=== PATIENT | female | born 1945 | race Caucasian/White ===

== ENCOUNTER → 2018-01-10 14:00 | Outpatient (CLI) | payer MEDICARE, MEDICAID, SELFPAY | PROVIDERS: PCP Nurse Practitioner Family; Visit Provider Nurse Practitioner Gerontology | DX: R32 Unspecified urinary incontinence (principal); Z87.440 Personal history of urinary (tract) infections; I10 Essential (primary) hypertension; E11.9 Type 2 diabetes mellitus without complications | CPT/HCPCS: 99213 ==

== ENCOUNTER 2018-02-12 00:19 | Outpatient (CLI) | payer MEDICARE, MEDICAID, SELFPAY ==
--- NOTE | 2018-02-12 10:32 | DI.MAMMO_ITS ---
SYMPTOM/DIAGNOSIS: SCREENING, PERSONAL H/O BREAST CA MAMMOGRAMS: Mammograms were interpreted according to the usual protocol including computer analysis with CAD system, tomosynthesis and C view imaging. The patient has a history of left breast cancer with lumpectomy in the upper outer quadrant. Comparison is made with exams from [id number]. The breasts are composed of scattered fibroglandular densities. No suspicious masses or suspicious microcalcifications or changes are seen. Post lumpectomy scarring is again noted in the upper outer quadrant of the left breast. IMPRESSION: Category 2B, negative mammogram with benign findings. Yearly screening mammography is recommended. SA ASSESSMENT OF FINDINGS: Negative with benign findings. Category 2. Patient will receive a letter notifying them of these results. BI-RADS category B. There are scattered areas of fibroglandular density.
== END 2018-02-12 00:39 ==
PROVIDERS: PCP Nurse Practitioner Family; Visit Provider Nurse Practitioner Gerontology
DX: Z85.3 Personal history of malignant neoplasm of breast (principal); Z12.31 Encounter for screening mammogram for malignant neoplasm of breast; Z98.890 Other specified postprocedural states
CPT/HCPCS: 77063; 77067

== ENCOUNTER 2018-04-06 02:05 | Outpatient (CLI) | payer MEDICARE, MEDICAID, SELFPAY ==
[2018-04-06 08:31] LABS: Hemoglobin A1C 5.6 % (4.5-6.2)
[2018-04-06 09:44] LABS: ALT 21 U/L (12-78); AST 12 U/L (15-37); Albumin 3.5 g/dL (3.4-5.0); Alkaline Phosphatase 153 U/L (46-116); Anion Gap 5.8 mmol/L (3-11); BUN 13 mg/dL (7-18); Bilirubin, Total 0.5 mg/dL (0.2-1.0); CO2 32.2 mmol/L (21.0-32.0); CREATININE 0.71 mg/dL (0.55-1.02); Calcium 9.4 mg/dL (8.5-10.1); Chloride 95 mmol/L (98-107); Cholesterol 174 mg/dL (50-200); Glucose 105 mg/dL (70-100); HDL Cholesterol 49 mg/dL (40-60); LDL CHOLESTEROL 114 mg/dL (<100); Potassium 4.1 mmol/L (3.5-5.1); Sodium 133 mmol/L (136-145); TSH 1.45 uIU/mL (0.358-3.74); Total Protein 6.8 g/dL (6.4-8.2); Triglyceride 66 mg/dL (30-150)
[2018-04-06 10:04] LABS: FREE T4 0.92 ng/dL (0.76-1.46)
== END 2018-04-06 02:25 ==
PROVIDERS: PCP Nurse Practitioner Family; Visit Provider Nurse Practitioner Family
DX: I10 Essential (primary) hypertension (principal); E78.5 Hyperlipidemia, unspecified; E11.9 Type 2 diabetes mellitus without complications
CPT/HCPCS: 36415; 80053; 80061; 83721; 83036; 84439; 84443

== ENCOUNTER 2018-05-13 00:13 | Outpatient (CLI) | payer MEDICARE, MEDICAID, SELFPAY ==
[2018-05-13 11:15] LABS: ALT 16 U/L (12-78); AST 9 U/L (15-37); Albumin 3.7 g/dL (3.4-5.0); Alkaline Phosphatase 152 U/L (46-116); Anion Gap 8.1 mmol/L (3-11); BUN 14 mg/dL (7-18); Bilirubin, Total 0.4 mg/dL (0.2-1.0); CO2 32.9 mmol/L (21.0-32.0); CREATININE 0.68 mg/dL (0.55-1.02); Calcium 9.4 mg/dL (8.5-10.1); Chloride 99 mmol/L (98-107); Glucose 82 mg/dL (70-100); Potassium 3.7 mmol/L (3.5-5.1); Sodium 140 mmol/L (136-145); Total Protein 7.2 g/dL (6.4-8.2)
== END 2018-05-13 00:33 ==
PROVIDERS: PCP Nurse Practitioner Family; Visit Provider Nurse Practitioner Family
DX: E11.9 Type 2 diabetes mellitus without complications (principal)
CPT/HCPCS: 36415; 80053

== ENCOUNTER 2018-05-21 21:42 | Emergency (ER) | payer MEDICARE, MEDICAID, SELFPAY ==
[2018-05-21 21:48] VITALS: BP 195/79; PULSE 90; RESP 16; TEMP 36.8; O2SAT 96
--- NOTE | 2018-05-21 21:58 | W.ED.GENAD ---
Discharge Plan Disposition Patient Disposition: AGAINST MEDICAL ADVICE Condition: Stable Discharge Details Chief Complaint: Headache Clinical Impression: Headache, Nausea and vomiting Primary Care Provider: Debbie Angulo ED Provider: Velma Hernandez Home Meds and New Rx's Prescriptions: Continued lancets [OneTouch UltraSoft Lancets] 1 EACH misc 1 ea Miscellaneous DAILY Qty: 100 RF: 4 cholecalciferol (vitamin D3) 1,000 UNIT capsule 1,000 unit PO DAILY RF: 0 Ascorbic Acid 100 mg PO DAILY RF: 0 OneTouch Ultra Test 1 EACH strip 1 ea Miscellaneous DAILY Qty: 100 RF: 4 lisinopril 10 MG tablet 10 mg PO DAILY Qty: 90 RF: 3 Discharge Instructions Instructions: Migraine Headache (ED), Acute Nausea and Vomiting (ED), General Headache (ED) Additional Instructions: Drink plenty of fluids and get plenty of rest. Call your primary care doctor tomorrow to schedule follow-up appointment for reevaluation. You will receive a call from care management regarding a follow-up appoint with neurology. Return immediately to the emergency department any worsening or new concerning symptoms. Referrals: Amalia Plummer MD [ [facility] STAFF PHYSICIAN] - Discharge Data Discharge Physician: Velma Hernandez Medical Decision Making 72-year-old female with a history of diabetes, hypertension, high cholesterol, breast cancer, depression and migraines who presents for frontal and occipital headache worse than usual migraine as well as a 3-hour period of confusion c/w possible receptive/expressive aphasia which is now resolved. Blood pressure hypertensive. Remainder vitals within normal limits. No focal deficits on exam. Patient appears nontoxic and in no acute distress. Differential diagnoses include acute cva, tia, complex migraine, electrolyte abnormality. Will place an IV, bolus IV fluids, Compazine, Reglan, labs, EKG, chest x-ray as well as CT head and will plan for admission TIA rule out CVA I notified the hospitalist and likely plan for admission pending CT head. EKG noted a rate of 86, sinus, left bundle branch block, seen in previous, no acute change. 2320 --CT head and chest x-ray negative. Labs reviewed. White blood cell count 12. Troponin negative. Glucose 166. Remainder of labs essentially unremarkable. Patient informed of plan for admission and she is requesting to go home. Patient states she is feeling much better and feels that her symptoms were possibly due to migraine. The risks of and disability due to a serious pathology such as TIA or CVA, were explained and patient fully understands and still is requesting to leave. She demonstrates capacity to make decisions. AMA form signed. Will place patient on care management list to arrange for a follow-up appointment with neurology for reevaluation for concern for possible TIA versus complex migraine. Medical Records Medical records reviewed: Yes I reviewed the patient's medical records. Imaging Data Radiologic Study: Radiologist's impression: CT Head Without Contrast EXAM DATE/TIME: 05/21/2018 10:34 PM FINDINGS: Brain: Minimal chronic ischemic white matter disease. No acute territorial infarct. Ventricles: Normal. No ventriculomegaly. Bones/joints: Normal. No acute fracture. Sinuses: Normal as visualized. No acute sinusitis. Mastoid air cells: Normal as visualized. No mastoid effusion. Soft tissues: Normal. IMPRESSION: No acute intracranial findings. XR Chest, 2 Views EXAM DATE/TIME: 05/21/2018 10:31 PM FINDINGS: Lungs: Unremarkable. No consolidation. Pleural space: Unremarkable. No pleural effusion. No pneumothorax. Heart/Mediastinum: Unremarkable. No cardiomegaly. Bones/joints: Degenerative change of the shoulders and spine. IMPRESSION: No acute finding. Lab Data Lab results reviewed: Yes I reviewed the patient's lab results. Laboratory Tests Range/Units 05/21/18 05/21/18 23:00 23:00 WBC (4.4-10.8) k/cumm 12.33 H RBC (4.00-5.20) m/cumm 4.91 Hgb (12.0-15.5) g/dL 13.9 Hct (36.0-46.0) % 40.5 MCV (80-95) fL 82.5 MCH (27.0-33.0) pg 28.3 MCHC (32.0-36.0) g/dL 34.3 RDW (11.7-14.6) % 13.5 Plt Count (130-400) x1000/uL 253 MPV (8.0-11.0) fL 10.4 Immature Gran % 0.3 Neutrophils % 84.2 Lymphocytes % 10.3 Monocytes % 4.9 Eosinophils % 0.2 Basophils % 0.1 Absolute Neutrophils (1.2-6.7) k/cumm 10.38 H Absolute Lymphocytes (1.2-3.4) k/cumm 1.27 Absolute Monocytes (0.11-0.7) k/cumm 0.60 Absolute Eosinophils (0.0-0.7) k/cumm 0.02 Absolute Basophils (0.0-0.2) k/cumm 0.01 Sodium (136-145) mmol/L 134 L Potassium (3.5-5.1) mmol/L 3.6 Chloride (98-107) mmol/L 94 L Carbon Dioxide (21.0-32.0) mmol/L 29.1 Anion Gap (3-11) mmol/L 10.9 BUN (7-18) mg/dL 13 Creatinine (0.55-1.02) mg/dL 0.79 Estimated GFR/1.73 m2 (mL/min/1.73m2) >= 60.00 Glucose (70-100) mg/dL 166 H Calcium (8.5-10.1) mg/dL 9.6 Magnesium (1.8-2.4) mg/dL 1.9 Total Bilirubin (0.2-1.0) mg/dL 0.4 AST (15-37) U/L 18 ALT (12-78) U/L 23 Alkaline Phosphatase (46-116) U/L 163 H Troponin I (0.00-0.06) ng/mL < 0.02 Total Protein (6.4-8.2) g/dL 8.1 Albumin (3.4-5.0) g/dL 3.8 ECG Data Attestation: I personally reviewed and interpreted this ECG (s) as follows: Interpretation: EKG notes a rate of 86, sinus, left bundle branch block, seen in previous, no other acute change. HPI General Mode of arrival: ambulatory. Date/Time Provider Initiated Documentation: 05/21/18 21:55. Limitations to Documentation: no limitations. Information obtained by: patient. HPI Narrative: Patient is a 72-year-old female with a history of migraines, breast cancer, depression, diabetes, hypertension, hyperlipidemia who presents to the ED with a complaint of headache since this morning and confusion this evening. Patient states she has a history of migraines since her 20s and a family history of migraines but states she has not had many for several years until the last year. States she has had 3 migraines in the last year which feels similar to today's migraine except today's migraine was more intense and lasting longer. Patient states her migraines are usually frontal which also occurred today but was also in the occipital region as well. Patient states that headache was 8/10 earlier today and is currently 7/10. She took Tylenol and Excedrin tension headache with some relief. Patient also admits to. Muna when she was looking at her cell phone when she could not understand the reading and felt like she could not understand how to push the keys. She states she could not make sense of the words . She states this lasted for a few hours and seems to be resolved. Patient also admits to nausea and vomiting x1 as well as photophobia. She denies any dizziness or blurry vision or extremity weakness or numbness. Related Data Home Medications Medication Instructions Recorded Confirmed lancets [[employer]Touch UltraSoft #100 ea 05/03/14 05/18/18 Lancets] cholecalciferol (vitamin D3) 1,000 unit PO DAILY 05/23/14 05/21/18 Ascorbic Acid 100 mg PO DAILY 06/11/15 05/21/18 [employer] Ultra Test #100 strip 06/11/15 05/18/18 lisinopril 10 mg PO DAILY #90 tab-cap 12/29/17 05/21/18 Previous Rx's Medication Instructions Recorded lisinopril 10 mg PO DAILY #90 tab-cap 12/29/17 Allergies Allergy/AdvReac Type Severity Reaction Status Date / Time morphine AdvReac Mild nausea Unverified 05/21/18 21:54 sulfamethoxazole AdvReac Mild nausea Unverified 05/21/18 21:54 [From Bactrim] trimethoprim [From Bactrim] AdvReac Mild nausea Unverified 05/21/18 21:54 losartan AdvReac Unknown Pt reports Unverified 05/21/18 21:54 redness and pain to feet -BR clindamycin AdvReac nausea/acid Unverified 05/21/18 21:54 stomach oxycodone HCl [From Percocet] AdvReac nausea Unverified 05/21/18 21:54 red wine AdvReac VERY Uncoded 05/21/18 21:54 UNCOMFORTABLE, LIKE BP IS UP General Stated Complaint: Headache JENNIFER: 3 Review of Systems Review of Systems All systems reviewed & are unremarkable except as noted in HPI and below Constitutional Reports as per HPI, Denies chills, Denies fever(s), Reports headache(s) and Denies weakness Eyes Denies blurry vision and Denies loss of vision ENT Denies dizziness, Reports headache(s), Denies sore throat and Denies throat swelling Cardiovascular Denies chest pain and Denies dyspnea Respiratory Denies dyspnea Gastrointestinal Denies abdominal pain, Denies diarrhea and Denies vomiting Genitourinary Denies hematuria and Denies dysuria Musculoskeletal Denies back pain, Denies numbness and Denies tingling Integumentary/Breasts Denies lesions and Denies rash Neurologic Reports confusion, Denies dizziness, Reports headache(s), Denies focal weakness, Denies loss of vision, Denies memory loss, Denies numbness, Denies convulsions, Denies tingling, Denies paresthesias and Denies weakness Psychiatric Reports confusion and Denies memory loss Allergic/Immunologic Denies throat swelling [facility] Medical History Type 2 diabetes mellitus (Chronic) 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) Hypertension (Chronic) Hyperlipemia (Chronic) Chronic cough (Chronic) Breast cancer history of L Depression Diabetes mellitus, type 2 Hyperlipidemia Hypertension Surgical History Abdominal hysterectomy Breast, Lumpectomy Colonoscopy - MAC L hip bursitis surgery Oophrectomy, Both Replacement of total knee joint Total replacement of hip Ulna nerve surgery L arm Family History Mother Essential hypertension Personal history of malignant neoplasm Depression Hyperlipidemia Father Essential hypertension Heart disease Sister Diabetes Essential hypertension Depression Heart disease Hyperlipidemia Sister Essential hypertension Brother Essential hypertension Heart disease Brother Diabetes Essential hypertension Depression Myocardial infarction Brother No problems noted. Grandfather Heart disease Grandfather Heart disease Grandmother Heart disease Grandmother Heart disease Son No problems noted. Son Essential hypertension Depression Son Depression Daughter No problems noted. Social History household members: none current occupational status: retired frequency: does not exercise Smoking/Tobacco Use Status: Never alcohol intake: never substance use type: does not use arina/anabaptist: Restorationism special arina needs: No Exam Const General: cooperative, healthy appearing and no acute distress HENMT Head: normal to inspection Ears: hearing grossly normal bilaterally and TM's normal bilaterally General nose exam: external nose normal Face and sinus: normal facial exam Mouth: oral mucosae normal Eyes General: appearance normal, both eyes and all related structures Pupils: PERRL EOM: EOM intact bilaterally Neck Neck: normal visual inspection and No submandibular swelling Lymphatic: no lymphadenopathy noted Chest Chest: normal inspection of the chest and no tenderness Resp Effort & Inspection: normal respiratory effort and able to speak in complete sentences Auscultation: clear to auscultation bilaterally Cardio Rate: regular rate Rhythm: regular rhythm GI Inspection: normal to inspection Palpation: soft, not firm, not rigid and nontender Auscultation: normal bowel sounds Skin General skin exam: no rashes or lesions noted Neuro General: alert, awake and oriented x3 Cranial Nerves: CN's II-XI intact bilaterally Cognition: normal cognition Speech: speech normal Motor: muscle tone normal throughout and strength 5/5 throughout Sensory Exam: no sensory deficits noted Extrem General: normal to inspection, full ROM, normal capillary refill, no calf tenderness bilaterally and no edema Psych Appearance: grossly normal Mental Status: mental status grossly normal Speech and Movement: speech and movement normal Affect: normal affect Course Vital Signs Temperature 98.3 F 05/21/18 21:48 Pulse 90 05/21/18 21:48 Respiratory Rate 16 05/21/18 21:48 Pulse Oximetry 96 05/21/18 21:48 Temperature 98.3 F 05/21/18 21:48 Temperature Source Skin 05/21/18 21:48 Pulse 90 05/21/18 21:48 Respiratory Rate 16 05/21/18 21:48 Respiratory Effort Non-Labored 05/21/18 21:52 Pulse Oximetry 96 05/21/18 21:48 Pain Level 7 05/21/18 21:48
--- NOTE | 2018-05-21 22:29 | DI.RAD_ITS ---
SYMPTOM/DIAGNOSIS: CONFUSION, R/O ACUTE CVA PA AND LATERAL CHEST: The heart is normal in size. The lungs are clear. The mediastinal structures and pleura appear intact. CONCLUSION: Normal chest. No evidence of acute cardiopulmonary disease.
--- NOTE | 2018-05-21 22:31 | DI.CT_ITS ---
SYMPTOM/DIAGNOSIS: CONFUSION, R/O ACUTE CVA CRANIAL CT: The examination was carried out according to the usual protocol without contrast enhancement. There is no evidence of an intra or extra axial hemorrhage, mass or edema and nothing to suggest a territorial infarct. The ventricles are normal. The bony structures are unremarkable. There is no skull fracture. There is no evidence of sinusitis. There is no mastoid effusion. The soft tissues are unremarkable. SUMMARY: No acute intracranial abnormality is demonstrated.
--- NOTE | 2018-05-21 22:37 | ED.GENADUL_ITS ---
Discharge Plan Disposition Patient Disposition: AGAINST MEDICAL ADVICE Condition: Stable Discharge Details Chief Complaint: Headache Clinical Impression: Headache, Nausea and vomiting Primary Care Provider: Debbie Angulo ED Provider: Velma Hernandez Home Meds and New Rx's Prescriptions: Continued lancets [OneTouch UltraSoft Lancets] 1 EACH misc 1 ea Miscellaneous DAILY Qty: 100 RF: 4 cholecalciferol (vitamin D3) 1,000 UNIT capsule 1,000 unit PO DAILY RF: 0 Ascorbic Acid 100 mg PO DAILY RF: 0 OneTouch Ultra Test 1 EACH strip 1 ea Miscellaneous DAILY Qty: 100 RF: 4 lisinopril 10 MG tablet 10 mg PO DAILY Qty: 90 RF: 3 Discharge Instructions Instructions: Migraine Headache (ED), Acute Nausea and Vomiting (ED), General Headache (ED) Additional Instructions: Drink plenty of fluids and get plenty of rest. Call your primary care doctor tomorrow to schedule follow-up appointment for reevaluation. You will receive a call from care management regarding a follow-up appoint with neurology. Return immediately to the emergency department any worsening or new concerning symptoms. Referrals: Amalia Plummer MD [ [facility]FF [facility]YS[facility]IAN] - Discharge Data Discharge Physician: Velma Hernandez Medical Decision Making 72-year-old female with a history of diabetes, hypertension, high cholesterol, breast cancer, depression and migraines who presents for frontal and occipital headache worse than usual migraine as well as a 3-hour period of confusion c/w possible receptive/expressive aphasia which is now resolved. Blood pressure hypertensive. Remainder vitals within normal limits. No focal deficits on exam. Patient appears nontoxic and in no acute distress. Differential diagnoses include acute cva, tia, complex migraine, electrolyte abnormality. Will place an IV, bolus IV fluids, Compazine, Reglan, labs, EKG, chest x-ray as well as CT head and will plan for admission TIA rule out CVA I notified the hospitalist and likely plan for admission pending CT head. EKG noted a rate of 86, sinus, left bundle branch block, seen in previous, no acute change. 2320 --CT head and chest x-ray negative. Labs reviewed. White blood cell count 12. Troponin negative. Glucose 166. Remainder of labs essentially unremarkable. Patient informed of plan for admission and she is requesting to go home. Patient states she is feeling much better and feels that her symptoms were possibly due to migraine. The risks of and disability due to a serious pathology such as TIA or CVA, were explained and patient fully understands and still is requesting to leave. She demonstrates capacity to make decisions. AMA form signed. Will place patient on care management list to arrange for a follow-up appointment with neurology for reevaluation for concern for possible TIA versus complex migraine. Medical Records Medical records reviewed: Yes I reviewed the patient's medical records. Imaging Data Radiologic Study: Radiologist's impression: CT Head Without Contrast EXAM DATE/TIME: 05/21/2018 10:34 PM FINDINGS: Brain: Minimal chronic ischemic white matter disease. No acute territorial infarct. Ventricles: Normal. No ventriculomegaly. Bones/joints: Normal. No acute fracture. Sinuses: Normal as visualized. No acute sinusitis. Mastoid air cells: Normal as visualized. No mastoid effusion. Soft tissues: Normal. IMPRESSION: No acute intracranial findings. XR Chest, 2 Views EXAM DATE/TIME: 05/21/2018 10:31 PM FINDINGS: Lungs: Unremarkable. No consolidation. Pleural space: Unremarkable. No pleural effusion. No pneumothorax. Heart/Mediastinum: Unremarkable. No cardiomegaly. Bones/joints: Degenerative change of the shoulders and spine. IMPRESSION: No acute finding. Lab Data Lab results reviewed: Yes I reviewed the patient's lab results. Laboratory Tests Range/Units 05/21/18 05/21/18 23:00 23:00 WBC (4.4-10.8) k/cumm 12.33 H RBC (4.00-5.20) m/cumm 4.91 Hgb (12.0-15.5) g/dL 13.9 Hct (36.0-46.0) % 40.5 MCV (80-95) fL 82.5 MCH (27.0-33.0) pg 28.3 MCHC (32.0-36.0) g/dL 34.3 RDW (11.7-14.6) % 13.5 Plt Count (130-400) x1000/uL 253 MPV (8.0-11.0) fL 10.4 Immature Gran % 0.3 Neutrophils % 84.2 Lymphocytes % 10.3 Monocytes % 4.9 Eosinophils % 0.2 Basophils % 0.1 Absolute Neutrophils (1.2-6.7) k/cumm 10.38 H Absolute Lymphocytes (1.2-3.4) k/cumm 1.27 Absolute Monocytes (0.11-0.7) k/cumm 0.60 Absolute Eosinophils (0.0-0.7) k/cumm 0.02 Absolute Basophils (0.0-0.2) k/cumm 0.01 Sodium (136-145) mmol/L 134 L Potassium (3.5-5.1) mmol/L 3.6 Chloride (98-107) mmol/L 94 L Carbon Dioxide (21.0-32.0) mmol/L 29.1 Anion Gap (3-11) mmol/L 10.9 BUN (7-18) mg/dL 13 Creatinine (0.55-1.02) mg/dL 0.79 Estimated GFR/1.73 m2 (mL/min/1.73m2) >= 60.00 Glucose (70-100) mg/dL 166 H Calcium (8.5-10.1) mg/dL 9.6 Magnesium (1.8-2.4) mg/dL 1.9 Total Bilirubin (0.2-1.0) mg/dL 0.4 AST (15-37) U/L 18 ALT (12-78) U/L 23 Alkaline Phosphatase (46-116) U/L 163 H Troponin I (0.00-0.06) ng/mL < 0.02 Total Protein (6.4-8.2) g/dL 8.1 Albumin (3.4-5.0) g/dL 3.8 ECG Data Attestation: I personally reviewed and interpreted this ECG (s) as follows: Interpretation: EKG notes a rate of 86, sinus, left bundle branch block, seen in previous, no other acute change. HPI General Mode of arrival: ambulatory . Date/Time Provider Initiated Documentation: 05/21/18 21:55 . Limitations to Documentation: no limitations . Information obtained by: patient . HPI Narrative: Patient is a 72-year-old female with a history of migraines, breast cancer, depression, diabetes, hypertension, hyperlipidemia who presents to the ED with a complaint of headache since this morning and confusion this evening. Patient states she has a history of migraines since her 20s and a family history of migraines but states she has not had many for several years until the last year. States she has had 3 migraines in the last year which feels similar to today's migraine except today's migraine was more intense and lasting longer. Patient states her migraines are usually frontal which also occurred today but was also in the occipital region as well. Patient states that headache was 8/10 earlier today and is currently 7/10. She took Tylenol and Excedrin tension headache with some relief. Patient also admits to. Muna when she was looking at her cell phone when she could not understand the reading and felt like she could not understand how to push the keys. She states she could not make sense of the words . She states this lasted for a few hours and seems to be resolved. Patient also admits to nausea and vomiting x1 as well as photophobia. She denies any dizziness or blurry vision or extremity weakness or numbness. Related Data Home Medications Medication Instructions Recorded Confirmed lancets [[email or web address] UltraSoft #100 ea 05/03/14 05/18/18 Lancets] cholecalciferol (vitamin D3) 1,000 unit PO DAILY 05/23/14 05/21/18 Ascorbic Acid 100 mg PO DAILY 06/11/15 05/21/18 [email or web address] Ultra Test #100 strip 06/11/15 05/18/18 lisinopril 10 mg PO DAILY #90 tab-cap 12/29/17 05/21/18 Previous Rx's Medication Instructions Recorded lisinopril 10 mg PO DAILY #90 tab-cap 12/29/17 Allergies Allergy/AdvReac Type Severity Reaction Status Date / Time morphine AdvReac Mild nausea Unverified 05/21/18 21:54 sulfamethoxazole AdvReac Mild nausea Unverified 05/21/18 21:54 [From Bactrim] trimethoprim [From Bactrim] AdvReac Mild nausea Unverified 05/21/18 21:54 losartan AdvReac Unknown Pt reports Unverified 05/21/18 21:54 redness and pain to feet -BR clindamycin AdvReac nausea/acid Unverified 05/21/18 21:54 stomach oxycodone HCl [From Percocet] AdvReac nausea Unverified 05/21/18 21:54 red wine AdvReac VERY Uncoded 05/21/18 21:54 UNCOMFORTABLE, LIKE BP IS UP General Stated Complaint: Headache JENNIFER: 3 Review of Systems Review of Systems All systems reviewed & are unremarkable except as noted in HPI and below Constitutional Reports as per HPI, Denies chills, Denies fever(s), Reports headache(s) and Denies weakness Eyes Denies blurry vision and Denies loss of vision ENT Denies dizziness, Reports headache(s), Denies sore throat and Denies throat swelling Cardiovascular Denies chest pain and Denies dyspnea Respiratory Denies dyspnea Gastrointestinal Denies abdominal pain, Denies diarrhea and Denies vomiting Genitourinary Denies hematuria and Denies dysuria Musculoskeletal Denies back pain, Denies numbness and Denies tingling Integumentary/Breasts Denies lesions and Denies rash Neurologic Reports confusion, Denies dizziness, Reports headache(s), Denies focal weakness, Denies loss of vision, Denies memory loss, Denies numbness, Denies convulsions, Denies tingling, Denies paresthesias and Denies weakness Psychiatric Reports confusion and Denies memory loss Allergic/Immunologic Denies throat swelling [facility] Medical History Type 2 diabetes mellitus (Chronic) 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) Hypertension (Chronic) Hyperlipemia (Chronic) Chronic cough (Chronic) Breast cancer history of L Depression Diabetes mellitus, type 2 Hyperlipidemia Hypertension Surgical History Abdominal hysterectomy Breast, Lumpectomy Colonoscopy - MAC L hip bursitis surgery Oophrectomy, Both Replacement of total knee joint Total replacement of hip Ulna nerve surgery L arm Family History Mother Essential hypertension Personal history of malignant neoplasm Depression Hyperlipidemia Father Essential hypertension Heart disease Sister Diabetes Essential hypertension Depression Heart disease Hyperlipidemia Sister Essential hypertension Brother Essential hypertension Heart disease Brother Diabetes Essential hypertension Depression Myocardial infarction Brother No problems noted. Grandfather Heart disease Grandfather Heart disease Grandmother Heart disease Grandmother Heart disease Son No problems noted. Son Essential hypertension Depression Son Depression Daughter No problems noted. Social History household members: none current occupational status: retired frequency: does not exercise Smoking/Tobacco Use Status: Never alcohol intake: never substance use type: does not use arina/moravian: Jain special arina needs: No Exam Const General: cooperative, healthy appearing and no acute distress HENMT Head: normal to inspection Ears: hearing grossly normal bilaterally and TM's normal bilaterally General nose exam: external nose normal Face and sinus: normal facial exam Mouth: oral mucosae normal Eyes General: appearance normal, both eyes and all related structures Pupils: PERRL EOM: EOM intact bilaterally Neck Neck: normal visual inspection and No submandibular swelling Lymphatic: no lymphadenopathy noted Chest Chest: normal inspection of the chest and no tenderness Resp Effort & Inspection: normal respiratory effort and able to speak in complete sentences Auscultation: clear to auscultation bilaterally Cardio Rate: regular rate Rhythm: regular rhythm GI Inspection: normal to inspection Palpation: soft, not firm, not rigid and nontender Auscultation: normal bowel sounds Skin General skin exam: no rashes or lesions noted Neuro General: alert, awake and oriented x3 Cranial Nerves: CN's II-XI intact bilaterally Cognition: normal cognition Speech: speech normal Motor: muscle tone normal throughout and strength 5/5 throughout Sensory Exam: no sensory deficits noted Extrem General: normal to inspection, full ROM, normal capillary refill, no calf tenderness bilaterally and no edema Psych Appearance: grossly normal Mental Status: mental status grossly normal Speech and Movement: speech and movement normal Affect: normal affect Course Vital Signs Temperature 98.3 F 05/21/18 21:48 Pulse 90 05/21/18 21:48 Respiratory Rate 16 05/21/18 21:48 Pulse Oximetry 96 05/21/18 21:48 Temperature 98.3 F 05/21/18 21:48 Temperature Source Skin 05/21/18 21:48 Pulse 90 05/21/18 21:48 Respiratory Rate 16 05/21/18 21:48 Respiratory Effort Non-Labored 05/21/18 21:52 Pulse Oximetry 96 05/21/18 21:48 Pain Level 7 05/21/18 21:48
[2018-05-21] MEDS: Normal Saline 250 ML 500 ML IV (23:03)
[2018-05-21] MEDS: diphenhydrAMINE 50 MG/ML VIAL 25 MG IVP (23:05)
[2018-05-21] MEDS: Prochlorperazine 10 MG/2 ML VIAL IVP (23:08)
--- NOTE | 2018-05-21 23:09 | DI.VRAD_ITS ---
EXAM: CT Head Without Contrast EXAM DATE/TIME: 05/21/2018 10:34 PM CLINICAL HISTORY: 72 years old, female; Signs and symptoms; Other: Confusion; Additional info: R/O acute CVA TECHNIQUE: Axial computed tomography images of the head/brain without contrast. Coronal and sagittal reformatted images were created and reviewed. COMPARISON: No relevant prior studies available. FINDINGS: Brain: Minimal chronic ischemic white matter disease. No acute territorial infarct. Ventricles: Normal. No ventriculomegaly. Bones/joints: Normal. No acute fracture. Sinuses: Normal as visualized. No acute sinusitis. Mastoid air cells: Normal as visualized. No mastoid effusion. Soft tissues: Normal. IMPRESSION: No acute intracranial findings. Dictated and Authenticated by: Emory Cazares MD. Ordering:GISSEL Carreon MD
--- NOTE | 2018-05-21 23:09 | DI.VRAD_ITS ---
EXAM: XR Chest, 2 Views EXAM DATE/TIME: 05/21/2018 10:31 PM CLINICAL HISTORY: 72 years old, female; Condition or disease; Other: Confusion; Additional info: R/O acute CVA TECHNIQUE: XR of the chest, 2 views. COMPARISON: No relevant prior studies available. FINDINGS: Lungs: Unremarkable. No consolidation. Pleural space: Unremarkable. No pleural effusion. No pneumothorax. Heart/Mediastinum: Unremarkable. No cardiomegaly. Bones/joints: Degenerative change of the shoulders and spine. IMPRESSION: No acute finding. Dictated and Authenticated by: Emory Cazares MD. Ordering:GISSEL Carreon MD
[2018-05-21 23:18] LABS: Abs Immature Grans 0.04 k/cumm (0.0-0.09); Absolute Basophil Count 0.01 k/cumm (0.0-0.2); Absolute Eosinophil Count 0.02 k/cumm (0.0-0.7); Absolute Lymphocyte Count 1.27 k/cumm (1.2-3.4); Absolute Neutrophil Count 10.38 k/cumm (1.2-6.7); Basophils % 0.1; Eosinophils % 0.2; HCT 40.5 % (36.0-46.0); HGB 13.9 g/dL (12.0-15.5); Immature Grans % 0.3; Lymphocytes % 10.3; Mean Corp. HGB Concentration 34.3 g/dL (32.0-36.0); Mean Corpuscular Hemoglobin 28.3 pg (27.0-33.0); Mean Corpuscular Volume 82.5 fL (80-95); Mean Platelet Volume 10.4 fL (8.0-11.0); Monocytes % 4.9; Neutrophils % 84.2; Platelet Count 253 x1000/uL (130-400); RBC 4.91 m/cumm (4.00-5.20); RBC Distribution Width 13.5 % (11.7-14.6); White Blood Cell Count 12.33 k/cumm (4.4-10.8)
[2018-05-21 23:34] LABS: ALT 23 U/L (12-78); AST 18 U/L (15-37); Albumin 3.8 g/dL (3.4-5.0); Alkaline Phosphatase 163 U/L (46-116); Anion Gap 10.9 mmol/L (3-11); BUN 13 mg/dL (7-18); Bilirubin, Total 0.4 mg/dL (0.2-1.0); CO2 29.1 mmol/L (21.0-32.0); CREATININE 0.79 mg/dL (0.55-1.02); Calcium 9.6 mg/dL (8.5-10.1); Chloride 94 mmol/L (98-107); Glucose 166 mg/dL (70-100); Magnesium 1.9 mg/dL (1.8-2.4); Potassium 3.6 mmol/L (3.5-5.1); Sodium 134 mmol/L (136-145); Total Protein 8.1 g/dL (6.4-8.2)
[2018-05-21 23:40] LABS: Troponin I < 0.02 ng/mL (0.00-0.06)
== END 2018-05-21 23:50 | disposition left against medical advice (07) ==
PROVIDERS: Emergency Provider Physician Assistant; PCP Nurse Practitioner Family
DX: R51 Headache (principal); R11.2 Nausea with vomiting, unspecified; I44.7 Left bundle-branch block, unspecified; I10 Essential (primary) hypertension; E11.9 Type 2 diabetes mellitus without complications
CPT/HCPCS: 36415; 80053; 93005; 96374; 96375; 99285; 70450; 71046; 83735; 84484; 85025; 93010; J0780; J1200

== ENCOUNTER 2018-10-08 02:03 | Outpatient (CLI) | payer MEDICARE, MEDICAID, SELFPAY ==
[2018-10-08 11:27] LABS: Anion Gap 6.7 mmol/L (3-11); BUN 12 mg/dL (7-18); CO2 31.3 mmol/L (21.0-32.0); Calcium 9.3 mg/dL (8.5-10.1); Chloride 99 mmol/L (98-107); Cholesterol 196 mg/dL (50-200); Glucose 99 mg/dL (70-100); HDL Cholesterol 48 mg/dL (40-60); LDL CHOLESTEROL 130 mg/dL (<100); Potassium 4.3 mmol/L (3.5-5.1); Sodium 137 mmol/L (136-145); Triglyceride 94 mg/dL (30-150)
== END 2018-10-08 02:23 ==
PROVIDERS: PCP Nurse Practitioner Family; Visit Provider Nurse Practitioner Family
DX: E11.9 Type 2 diabetes mellitus without complications (principal); E78.5 Hyperlipidemia, unspecified; I10 Essential (primary) hypertension
CPT/HCPCS: 36415; 80048; 80061; 83721; 83036

== ENCOUNTER 2018-10-24 02:45 | Outpatient (CLI) | payer MEDICARE, MEDICAID, SELFPAY ==
--- NOTE | 2018-10-24 | PFT_ITS ---
PULMONARY FUNCTION TEST REPORT Patient - Ni Rodriguez 43 DATE OF SERVICE October 24, 2018 REQUESTING PROVIDER Debbie Angulo M.D. INTERPRETATION OF STUDY Spirometry shows no evidence of obstructive airways disease. No bronchodilator response. LUNG VOLUMES - Lung volumes show no evidence of restriction. DIFFUSION CAPACITY- Normal. AIRWAY RESISTANCE - Normal. IMPRESSION Normal pulmonary function study. Clinical correlation recommended. Anay Kc M.D. PAPA/ T- 11/01/18
[2018-10-24] MEDS: Inhaler, Assist Device 1 EACH MC (16:00)
[2018-10-24] MEDS: Albuterol HFA 18 GM 200 PUFF INH IH (16:01)
== END 2018-10-24 03:05 ==
PROVIDERS: PCP Nurse Practitioner Family; Visit Provider Nurse Practitioner Family
DX: R05 Cough (principal)
CPT/HCPCS: 94060; 94150; 94726; 94729

== ENCOUNTER 2018-10-31 11:55 | Outpatient (CLI) | payer MEDICARE, MEDICAID, SELFPAY ==
--- NOTE | 2018-10-31 11:20 | DI.RAD_ITS ---
SYMPTOMS/DIAGNOSIS: F/U LEFT HIP AND PELVIS: Severe DJD involving the left hip is noted with joint space narrowing, articular sclerosis and subchondral cyst formation and periarticular hypertrophic spurring.
== END 2018-10-31 12:15 ==
PROVIDERS: PCP Nurse Practitioner Family; Referring Provider Nurse Practitioner Family; Visit Provider Orthopaedic Surgery
DX: Z47.1 Aftercare following joint replacement surgery (principal); M16.12 Unilateral primary osteoarthritis, left hip; Z96.653 Presence of artificial knee joint, bilateral; Z96.641 Presence of right artificial hip joint
CPT/HCPCS: 99213; 73502

== ENCOUNTER 2018-11-12 11:18 | Day surgery (SDC) | payer MEDICARE, MEDICAID, SELFPAY ==
[2018-11-12 11:40] VITALS: BP 164/75; PULSE 78; RESP 18; TEMP 36.1; O2SAT 97
[2018-11-12] MEDS: Lidocaine 2% Multi-Dose 50 ML VIAL (13:09)
--- NOTE | 2018-11-12 13:44 | PDOC.DSDIS_ITS ---
Discharge Plan Disposition Patient Disposition: HOME Condition: Good Discharge Details Reason For Visit: Excision of ganglion cyst R ring finger Attending Provider: Jack Cedillo Primary Care Provider: Debbie Angulo Home Meds and New Rx's Prescriptions: Continued vitamin B complex [B Complex 1] tablet 1 tab PO DAILY RF: 0 Prevnar 13 (PF) 0.5 mL syringe 0.5 ml IM ONCE Qty: 0.5 RF: 0 varicella-zoster [id number] (PF) 50 mcg/0.5 mL suspension for reconstitution 0.5 ml IM ONCE Qty: 1 RF: 0 lancets [OneTouch UltraSoft Lancets] 1 EACH misc 1 ea Miscellaneous DAILY Qty: 100 RF: 4 cholecalciferol (vitamin D3) 1,000 UNIT capsule 1,000 unit PO DAILY RF: 0 Ascorbic Acid 100 mg PO DAILY RF: 0 OneTouch Ultra Test 1 EACH strip 1 ea Miscellaneous DAILY Qty: 100 RF: 4 amlodipine 2.5 mg tablet 5 mg PO DAILY Qty: 180 RF: 4 Discharge Instructions Additional Instructions: Keep dressings dry and intact until return. Cover to shower. Follow up in 's office in one week. May use R hand as much as your discomfort allows. Take tylenol or ibuprofen for pain. Referrals: Jack Cedillo MD [ [facility] PHYSICIAN] - (f/u in one week.) Activity:: Activity as Tolerated Remove Dressings/Wound Care:: Do Not Remove Shower/Bathe:: Cover Diet:: As Tolerated Discharge Orders Discharge Orders: Discharge Order (Routine); Ordered 11/12/18 Ordered By: Jack Cedillo DS: Diagnosis Discharge Diagnosis (1) Ganglion cyst of finger of right hand: Status: Acute
--- NOTE | 2018-11-13 09:23 | ROE_ITS ---
DATE OF PROCEDURE: November 12, 2018 PREOPERATIVE DIAGNOSIS: Ganglion cyst, dorsum of the right ring finger. POSTOPERATIVE DIAGNOSIS: Same. PROCEDURE: Excision of two ganglion cysts, dorsum of the right ring finger. ANESTHESIA: Local infiltration with 2% Xylocaine solution and 0.5% Marcaine with an epinephrine solu tion. SURGEON: Jack Cedillo M.D. INDICATIONS: This is a 73-year-old white female who has two ganglion cysts on the dorsum of her righ t ring finger overlying the proximal phalanx. The more proximal cyst is larger, probably 2 cm in elizabeth meter. It's not tender. It appears to be translucent. There's a smaller one, probably the size of a pea, that's further distal overlying the PIP joint and the diameter of that cyst is only about 5 mm . They appear to be getting bigger, she keeps bumping them and she wants them excised. The risks an d complications of the procedure were explained to the patient in detail preoperatively. PROCEDURE: The patient was taken to the Operating Room on 11/12/18. She was placed supine on the ope rating table. Her right hand was prepped and draped free in the usual sterile fashion. I started an incision in the midline over the proximal phalanx of the right ring finger. I passed on the radial side of the cyst with the incision extending distally, curved it back to the radial side of the finger and passed it up into the dorsal midline distal to the second cyst. I created a skin f lap distally so I could excise the smaller cyst in one piece. I sharply peeled it off the extensor h ood over the PIP joint. The proximal cyst was not adherent to the extensor tendon, but was arising f rom the lateral band on the radial side. The cyst was sharply dissected off the overlying skin flap, circumferentially dissected and then released with electrocautery. The wound margins were infiltrat ed with 0.5% Marcaine with an epinephrine solution after first infiltrating the skin with 2% Xylocain e solution before making the incision. The wound was irrigated with Betadine and saline solution and the skin edges were then approximated with alternating simple and horizontal mattress sutures of #4- 0 nylon suture material. There was good hemostasis obtained simply with pressure on the wound. The wound was dressed with Xeroform gauze, sterile gauze 4x4's and wrapped with a 2-inch Cling bandage. The patient tolerated the procedure well, she was discharged to the Day Surgery Unit in good conditio n. The patient was discharged home with instructions to keep her dressings clean and dry for the next we ek. She will follow-up with me in one week for a dressing change and wound check. She may use her r ight hand as much as discomfort allows. She should cover the right hand with a glove when showering to keep the dressings from getting wet. She will take Tylenol or ibuprofen for pain.
== END 2018-11-12 13:55 | disposition home or self-care (01) ==
PROVIDERS: PCP Nurse Practitioner Family; Visit Provider Orthopaedic Surgery
PROC: (CPT 26160; principal; 2018-11-12 12:15)
DX: M67.441 Ganglion, right hand (principal)
CPT/HCPCS: 26160 ×2

== ENCOUNTER → 2018-11-20 09:35 | Outpatient (BNVA) | payer MEDICARE, MEDICAID, SELFPAY | PROVIDERS: PCP Nurse Practitioner Family; Referring Provider Nurse Practitioner Family; Visit Provider Orthopaedic Surgery | DX: M67.441 Ganglion, right hand (principal); Z47.89 Encounter for other orthopedic aftercare ==

== ENCOUNTER 2019-02-21 01:00 | Outpatient (CLI) | payer MEDICARE, MEDICAID, SELFPAY ==
--- NOTE | 2019-02-21 14:47 | DI.MAMMO_ITS ---
EXAM: MG MAMMO SCREENING 60 MIN DUR CLINICAL HISTORY: screening Z12.31, PERSONAL HX BREAST CANCER Z85.3. TECHNIQUE: Mammograms were interpreted according to the usual protocol including computer analysis w [facility] [employer] system, tomosynthesis and C-view imaging. COMPARISON: February 2018 FINDINGS: The breasts are of moderate density. There has been a previous left lumpectomy/partial mastectomy. No new mass or clumped microcalcification identified in either breast. Current examination compared to previous examinations including February 2018 and no gross interval change in appearance since ose examinations. IMPRESSION: No specific evidence of malignancy at this time. Routine screenings examinations suggested at yearly intervals due to the history of breast carcinoma. Category 1 breast density category B. BI-RADS Cat 1 - Negative Breast Density - Category B - Scattered areas of fibroglandular density
== END 2019-02-21 01:20 ==
PROVIDERS: PCP Nurse Practitioner Family; Visit Provider Nurse Practitioner Family
DX: Z12.31 Encounter for screening mammogram for malignant neoplasm of breast (principal); Z85.3 Personal history of malignant neoplasm of breast; Z98.890 Other specified postprocedural states
CPT/HCPCS: 77063; 77067

== ENCOUNTER → 2019-03-07 12:47 | Outpatient (BNVA) | payer MEDICARE, MEDICAID, SELFPAY | PROVIDERS: PCP Nurse Practitioner Family; Referring Provider Nurse Practitioner Family; Visit Provider Nurse Practitioner Gerontology | DX: R32 Unspecified urinary incontinence (principal); I10 Essential (primary) hypertension | CPT/HCPCS: 99213 ==

== ENCOUNTER 2019-03-08 10:57 | Emergency (ER) | payer MEDICARE, MEDICAID, SELFPAY ==
[2019-03-08 11:02] VITALS: BP 159/81; PULSE 86; RESP 18; TEMP 37.2; O2SAT 99
--- NOTE | 2019-03-08 11:47 | ED.GENADUL_ITS ---
Discharge Plan Disposition Patient Disposition: HOME Condition: Good Discharge Details Chief Complaint: Vascular Clinical Impression: Leg pain, left Primary Care Provider: Debbie Angulo ED Provider: Johanna Farris Home Meds and New Rx's Prescriptions: Continued betamethasone, augmented 0.05 % cream 1 applic TP DAILY PRN (Reason: skin irritation) Qty: 50 RF: 2 amlodipine 5 mg tablet 5 mg PO DAILY Qty: 90 RF: 4 amlodipine 2.5 mg tablet 2.5 mg PO DAILY Qty: 90 RF: 4 (DME) lancets [OneTouch UltraSoft Lancets] 1 EACH misc 1 ea Miscellaneous DAILY Qty: 100 RF: 4 cholecalciferol (vitamin D3) 1,000 UNIT capsule 1,000 unit PO DAILY RF: 0 Ascorbic Acid 100 mg PO DAILY RF: 0 (DME) OneTouch Ultra Test 1 EACH strip 1 ea Miscellaneous DAILY Qty: 100 RF: 4 B-Complex With B-12 2.5 mg-2.5 mg- 5 mg-100 mcg Tablet 1 tab PO DAILY RF: 0 Discharge Instructions Instructions: Leg Pain (ED) Additional Instructions: Encourage rest, ice, elevation. Tylenol and/or ibuprofen as needed for discomfort. Please follow-up with primary care if pain is not improving over the next 1 to 2 weeks. If you develop chest pain, shortness of breath, no rash or increased pain or other new/worsening symptoms please seek care urgently once again. Referrals: Debbie Angulo, CAMPUS MANAGER [Primary Care Provider] - Discharge Data Discharge Date/Time-TO BE ENTERED AT DEPARTURE: 03/08/19 13:20 Medical Decision Making Patient is a 73-year-old female with history of type 2 diabetes, hypertension, hyperlipidemia presenting today with chief left lower extremity pain. She reports the pain began last night. Denies any movements or activities that can exacerbate her discomfort. Currently asymptomatic. Reports it feels like my blood is trying to push through a narrow vessel. Denies any known trauma. No rash. No chest pain, no shortness of breath. She denies any recent travel. No recent surgeries. Patient reports she is fairly sedentary at baseline but no change in activity level recently. She is indicating primarily lateral aspect of the lower extremity is area of discomfort. She denies that she has bilateral lower extremity edema but states that this is common and unchanged from baseline. Negative Homans sign. No change in the skin. She has brisk capillary refill. At this point, her exam is not fully concerning for a DVT. However, given the patient's edema this does make this difficult to evaluate completely. Plan for ultrasound to rule out DVT. FINDINGS: Duplex venous ultrasound of left lower extremity was performed according to the usual protocol. Veins are freely compressible throughout and there is no visible thrombus. IMPRESSION: No evidence DVT of the left lower extremity. No Watkins cyst identified. Discussed these findings with the patient. We did discuss that her history is more consistent with muscle discomfort. I encouraged rest, ice, elevation. Tylenol and ibuprofen as needed for discomfort. As the patient is typically sedentary, we discussed potentially increasing her activity level to help prevent DVT in the future. Advise close follow-up with primary care. She is given strict return precautions. All of her questions and concerns were addressed and she is in agreement this plan. HPI General Mode of arrival: ambulatory . Date/Time Provider Initiated Documentation: 03/08/19 11:26 . Limitations to Documentation: no limitations . Information obtained by: patient and RN notes reviewed . History of Present Illness 73 year old F presents to the emergency department with the chief complaint of left lower extremity pain, described as moderate, with intensity rated at 4. Quality is described as aching, and is localized to the left and lower extremity. Patient reports no radiation. Patient started experiencing this day(s) (1) and it has been constant. No relieving factors improve symptom(s), No exacerbating factors reported . Patient notes no other symptoms.; denies chest pain, diaphoresis, fever/chills, shortness of breath and weakness. Patient did receive the following treatments prior to arrival, none Related Data Home Medications Medication Instructions Recorded Confirmed lancets [OffersBy.MeTouch UltraSoft #100 ea 05/03/14 03/08/19 Lancets] cholecalciferol (vitamin D3) 1,000 unit PO DAILY 05/23/14 03/08/19 Ascorbic Acid 100 mg PO DAILY 06/11/15 03/08/19 OneTouch Ultra Test #100 strip 06/11/15 03/08/19 amlodipine 2.5 mg tablet 2.5 mg PO DAILY #90 tab 01/21/19 03/08/19 amlodipine 5 mg tablet 5 mg PO DAILY #90 tab 01/21/19 03/08/19 betamethasone, augmented 0.05 % 1 applic TP DAILY PRN #50 gm 03/07/19 03/08/19 topical cream B-Complex With B-12 1 tab PO DAILY 03/08/19 03/08/19 Previous Rx's Medication Instructions Recorded amlodipine 2.5 mg tablet 2.5 mg PO DAILY #90 tab 01/21/19 amlodipine 5 mg tablet 5 mg PO DAILY #90 tab 01/21/19 betamethasone, augmented 0.05 % 1 applic TP DAILY PRN #50 gm 03/07/19 topical cream Allergies Allergy/AdvReac Type Severity Reaction Status Date / Time lisinopril AdvReac Intermediate Cough Verified 03/08/19 11:08 morphine AdvReac Mild nausea Verified 03/08/19 11:08 sulfamethoxazole AdvReac Mild nausea Verified 03/08/19 11:08 [From Bactrim] trimethoprim [From Bactrim] AdvReac Mild nausea Verified 03/08/19 11:08 losartan AdvReac Unknown Pt reports Verified 03/08/19 11:08 redness and pain to feet -BR clindamycin AdvReac nausea/acid Verified 03/08/19 11:08 stomach oxycodone HCl [From Percocet] AdvReac nausea Verified 03/08/19 11:08 red wine AdvReac VERY Uncoded 03/08/19 11:08 UNCOMFORTABLE, LIKE BP IS UP General Stated Complaint: Vascular JENNIFER: 3 Review of Systems Constitutional Constitutional: Reports as per HPI, Denies chills, Denies fever(s), Denies headache(s) and Denies weakness ENT Ears, Nose, Mouth, and Throat: Denies headache(s) Cardiovascular Cardiovascular: Reports as per HPI Respiratory Respiratory: Reports as per HPI and Denies cough Musculoskeletal Musculoskeletal: Reports as per HPI and Denies tingling Integumentary/Breasts Skin/Breast: Reports as per HPI, Denies rash and Denies wounds Neurologic Neurologic: Reports as per HPI, Denies headache(s), Denies tingling, Denies paresthesias and Denies weakness [facility] Medical History Chronic cough (Chronic) Present on and off lisinopril but given possible correlation, lisinopril d/faustino 10/2018 with so far resolution of symptoms Depression (Resolved) Entrapment of left ulnar nerve at elbow (Resolved) Hyperlipemia (Chronic) Hypertension (Chronic) Intraductal carcinoma of left breast (Resolved ~03/1996) S/p lumpectomy and radiation Migraine headache (Resolved) 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) Type 2 diabetes mellitus (Chronic) Surgical History History of bilateral oophorectomy (Inactive ~1983) Hx of bursectomy (Inactive 01/13/10) Left trochanteric bursa S/P breast lumpectomy (Inactive ~04/1996) S/P colonoscopy (Inactive) S/P cubital tunnel release (Inactive 01/24/06) Left arm S/P excision of ganglion cyst (Inactive 11/12/18) Excision of two ganglion cysts, dorsum of the right ring finge S/P tonsillectomy (Inactive) Status post abdominal hysterectomy (Inactive) Status post cataract extraction (Inactive 12/21/12) Status post total hip replacement, 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, left (Inactive 12/01/03) Status post total knee replacement, right (Inactive 10/25/10) Social History Smoking/Tobacco Use Status: Never Alcohol Intake: never Drug use: Never Substance use type: does not use Caregiver/Support person: No Household members: none Housing: apartment Communication Needs: None Do you need help understanding health information?: Never Sexually active: No Do you think of yourself as: straight/heterosexual Current gender identity: female What is your relationship status?: How often do you talk on the phone with friends or family?: three or more times per week How often do you get together with friends or relatives?: twice per week How often do you attend restorationist or worship services?: 1-3 times per year Do you belong to any clubs or organized social groups?: no Panel score (0-1 are the most socially isolated patients): 1 What type of physical activity do you participate in: other Details: Exercise bike, gazelle Duration: 15-30 minutes/day Frequency: 5-6 times per week Katie/Jew: Evangelical Special katie needs: No Seatbelt use: always Helmet use: No Drive intox or ride w/intox 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 Do you feel safe at home: Yes Do you feel safe in your relationship?: Yes History History 5 Para Hx # Term Pregnancies Multiple births Hx # Pregnancies Ectopic pregnancies AB induced Hx Number of Living Children 4 AB spontaneous 1 Exam Const General: cooperative, healthy appearing, comfortable, no acute distress, well developed and well groomed Nutritional Appearance: average body habitus and well nourished Orientation: alert and awake Resp Effort & Inspection: normal respiratory effort, able to speak in complete sentences and no respiratory distress Cardio Rate: regular rate Rhythm: regular rhythm Skin General skin exam: no rashes or lesions noted Lesions: no lesions Rashes: no rashes Trauma: no lacerations or abrasions Neuro General: alert and awake Cognition: normal cognition Speech: speech normal Gait: normal gait Motor: muscle tone normal throughout Sensory Exam: no sensory deficits noted Extrem General: normal to inspection, full ROM, normal capillary refill, no joint enlargement, no clubbing, cyanosis or edema, no pedal edema, normal gait and no calf tenderness bilaterally (lateral calf discomfort inferior LLE) Left lower extremity: normal to inspection, full ROM, normal capillary refill, no joint enlargement, knee Details: normal to inspection and normal ROM; no tenderness and no swelling, lower leg Details: normal to inspection, tenderness (as above) and non-pitting edema Details: 1+ (equal bilaterally); no erythema and no localized swelling, ankle Details: normal to inspection, no edema and normal ROM; no tenderness and no swelling and foot (distal pulses intact) Details: normal capillary refill; no cyanosis and no edema Psych Appearance: grossly normal and well kempt Mental Status: mental status grossly normal Speech and Movement: speech and movement normal Course Vital Signs Vital signs: Vital Signs Temperature 37.2 C 03/08/19 11:02 Pulse 86 03/08/19 11:02 Respiratory Rate 18 03/08/19 11:02 Blood Pressure 159/81 H 03/08/19 11:02 Pulse Oximetry 99 03/08/19 11:02 Temperature 37.2 C 03/08/19 11:02 Temperature Source Skin 03/08/19 11:02 Pulse 86 03/08/19 11:02 Respiratory Rate 18 03/08/19 11:02 Respiratory Effort 03/08/19 11:13 Respiratory Depth Normal 03/08/19 11:13 Respiratory Pattern Normal 03/08/19 11:13 Blood Pressure 159/81 H 03/08/19 11:02 Blood Pressure Position Sitting 03/08/19 11:02 Pulse Oximetry 99 03/08/19 11:02 Oxygen Delivery Method Room Air 03/08/19 11:02 Oxygen Flow Rate 0 03/08/19 11:02 Pain Level 4 03/08/19 11:13
--- NOTE | 2019-03-08 11:49 | DI.US_ITS ---
EXAM: US LOWER EXTREMITY VENOUS LT CLINICAL HISTORY: pain, swelling. TECHNIQUE: Ultrasound performed using standard protocol. COMPARISON: No exams were available for comparison FINDINGS: Duplex venous ultrasound of left lower extremity was performed according to the usual protocol. Vein s are freely compressible throughout and there is no visible thrombus. IMPRESSION: No evidence DVT of the left lower extremity. No Watkins cyst identified.
[2019-03-08 13:18] VITALS: BP 155/78; PULSE 80; RESP 16; O2SAT 100
== END 2019-03-08 13:20 | disposition home or self-care (01) ==
PROVIDERS: Emergency Provider Physician Assistant; PCP Nurse Practitioner Family
DX: M79.662 Pain in left lower leg (principal); E11.9 Type 2 diabetes mellitus without complications; I10 Essential (primary) hypertension
CPT/HCPCS: 99284; 93971

== ENCOUNTER 2019-04-30 01:36 | Outpatient (CLI) | payer MEDICARE, MEDICAID, SELFPAY ==
[2019-04-30 10:39] LABS: Uric Acid 4.5 mg/dL (2.6-6.0)
== END 2019-04-30 01:56 ==
PROVIDERS: PCP Nurse Practitioner Family; Visit Provider Nurse Practitioner Family
DX: E11.9 Type 2 diabetes mellitus without complications (principal); I10 Essential (primary) hypertension
CPT/HCPCS: 36415; 84550

== ENCOUNTER 2019-10-17 10:44 | Outpatient (CLI) | payer MEDICARE, MEDICAID, SELFPAY ==
--- NOTE | 2019-10-17 10:30 | DI.RAD_ITS ---
EXAM: XR PELVIS AP CLINICAL HISTORY: L hip pain TECHNIQUE: COMPARISON: CR XR hip LT complete AP pelvis from 10/31/2018 FINDINGS: Single AP view of pelvis was obtained. There is total hip joint replacement position. There are sev ere degenerative changes of left hip with marked loss of the cartilaginous joint space, subchondral s clerosis, and cyst formation which may involve acetabulum and/or femoral head. IMPRESSION: Severe DJD left hip.
== END 2019-10-17 11:04 ==
PROVIDERS: PCP Nurse Practitioner Family; Referring Provider Nurse Practitioner Family; Visit Provider Student in an Organized Health Care Education/Training Program
DX: M25.552 Pain in left hip (principal); M16.12 Unilateral primary osteoarthritis, left hip; Z96.642 Presence of left artificial hip joint; I10 Essential (primary) hypertension; E11.9 Type 2 diabetes mellitus without complications
CPT/HCPCS: 99214; 72170

== ENCOUNTER 2019-10-29 13:41 | Outpatient (CLI) | payer MEDICARE, MEDICAID, SELFPAY ==
[2019-10-29 18:20] LABS: Anion Gap 7.4 mmol/L (3-11); BUN 15 mg/dL (7-18); CO2 30.6 mmol/L (21.0-32.0); CREATININE 0.82 mg/dL (0.55-1.02); Calcium 9.9 mg/dL (8.5-10.1); Chloride 99 mmol/L (98-107); Glucose 100 mg/dL (74-106); Potassium 3.7 mmol/L (3.5-5.1); Sodium 137 mmol/L (136-145)
[2019-10-29 18:39] LABS: Calculated LDL 127 mg/dL (<100); Cholesterol 201 mg/dL (<200); HDL Cholesterol 48 mg/dL (40-60); Triglyceride 133 mg/dL (<150)
== END 2019-10-29 14:01 ==
PROVIDERS: PCP Nurse Practitioner Family; Visit Provider Nurse Practitioner Family
DX: I10 Essential (primary) hypertension (principal); E78.5 Hyperlipidemia, unspecified
CPT/HCPCS: 36415; 80048; 80061

== ENCOUNTER 2019-11-18 01:58 | Outpatient (CLI) | payer MEDICARE, MEDICAID, SELFPAY ==
[2019-11-18 09:56] LABS: HCT 38.5 % (36.0-46.0); HGB 12.9 g/dL (12.0-15.5); Mean Corp. HGB Concentration 33.5 g/dL (32.0-36.0); Mean Corpuscular Hemoglobin 28.4 pg (27.0-33.0); Mean Corpuscular Volume 84.8 fL (80-95); Mean Platelet Volume 10.2 fL (8.0-11.0); Platelet Count 297 x1000/uL (130-400); RBC 4.54 m/cumm (4.00-5.20); RBC Distribution Width 13.6 % (11.7-14.6)
[2019-11-18 10:53] LABS: Anion Gap 6.8 mmol/L (3-11); BUN 14 mg/dL (7-18); CO2 30.2 mmol/L (21.0-32.0); CREATININE 0.83 mg/dL (0.55-1.02); Calcium 9.2 mg/dL (8.5-10.1); Chloride 100 mmol/L (98-107); Glucose 190 mg/dL (74-106); Potassium 3.8 mmol/L (3.5-5.1); Sodium 137 mmol/L (136-145)
== END 2019-11-18 02:18 ==
PROVIDERS: PCP Nurse Practitioner Family; Visit Provider Student in an Organized Health Care Education/Training Program
DX: M25.552 Pain in left hip (principal); M16.12 Unilateral primary osteoarthritis, left hip; Z01.818 Encounter for other preprocedural examination; Z01.812 Encounter for preprocedural laboratory examination
CPT/HCPCS: 36415; 80048; 85027; 86850; 86900; 86901

== ENCOUNTER 2019-11-18 07:46 | Outpatient (CLI) | payer MEDICARE, MEDICAID, SELFPAY ==
[2019-11-19 16:33] LABS: COVID-19 RT-PCR UVMMC Result Negative (Negative)
== END 2019-11-18 08:06 ==
PROVIDERS: PCP Nurse Practitioner Family; Visit Provider Student in an Organized Health Care Education/Training Program
DX: Z11.59 Encounter for screening for other viral diseases (principal); Z01.818 Encounter for other preprocedural examination
CPT/HCPCS: 36415; 80048; 85027; 86850; 86900; 86901; U0003

== ENCOUNTER 2019-11-20 06:05 | Observation (INO) | payer MEDICARE, MEDICAID, SELFPAY ==
--- NOTE | 2019-11-19 11:21 | PDOC.CMIN ---
- If Service Date Differs Date of service: 11/19/19 Time of Service: 11:21 Care Management Initial Assess REASON FOR HOSPITALIZATION:: Hip replacement. PAST MEDICAL HISTORY/PAST SURGICAL HISTORY:: Medical History: Chronic cough - Present on and off lisinopril but given possible correlation, lisinopril d/faustino 10/2018 with so far resolution of symptoms, Depression, Entrapment of left ulnar nerve at elbow, Hyperlipemia, Hypertension, Intraductal carcinoma of left breast - S/p lumpectomy and radiation, Migraine headache, Mild non proliferative diabetic retinopathy, and Type 2 diabetes mellitus. Surgical History: History of bilateral oophorectomy, Hx of bursectomy - Left trochanteric bursa, S/P breast lumpectomy, S/P colonoscopy, S/P cubital tunnel release - Left arm, S/P excision of ganglion cyst, Excision of two ganglion cysts, dorsum of the right ring finger, S/P tonsillectomy, Status post abdominal hysterectomy, Status post cataract extraction, Status post total hip replacement, right (07/28/03), Status post total knee replacement, left (12/01/03), and. Status post total knee replacement, 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). PREVIOUS FUNCTIONAL STATUS/SOCIAL/FAMILY SUPPORTS:: Ni lives alone in an apartment in [place]. She has two sons, one who lives in [place] and one in [place], [place]. Ni reports she has lots of relatives in the area and neighbors who provide support when needed and who will be checking in on her afer her surgery. Ni is independent with her ADLs at baseline. CURRENT FUNCTIONAL STATUS:: telephones Ni to assess needs and any services needed post surgery. Ni states her apartment is on a one level floor. She is independent with her ADLs at baseline. She shares having the support of family and friends and does not anticipate needing any services post surgery. ADVANCE DIRECTIVES:: None on file. Has patient been provided with info about the portal/API?: Yes Did the patient sign up for the portal?: No CODE STATUS:: Full Code INSURANCE COVERAGE / FINANCIAL ISSUES:: Medicaid and Medicare. CURRENT HOME/COMMUNITY SERVICES/EQUIPMENT:: Ni has no in-home or community services. She has a cane, toilet riser seat, grab bars, and shower seat at home and has borrowed a FWW. PRIMARY CARE PHYSICIAN:: Debbie Angulo, MULTI DISCIPLINED LANGUAGE ANALYST- ([facility]) POTENTIAL DISCHARGE NEEDS:: Follow up appointment with Dr. Warren and outpatient physical therapy. PATIENT/FAMILY EDUCATION NEEDS:: Discharge instructions, limitations, follow up plan, including Ask Me Three and self-management. ANTICIPATED BARRIERS TO DISCHARGE:: No anticipated barriers at this time. TRANSPORTATION:: Via private vehicle with family. PLAN:: Ni will be discharged home when medically cleared by provider. She will follow up with Dr. Warren, outpatient physical therapy, and her plan of care as directed. She will be driven home by family via private vehicle when ready.
[2019-11-20] VITALS (13 sets, daily range): BP systolic 113–149; BP diastolic 53–97; PULSE 81–96; RESP 12–21; TEMP 36.2–36.5; O2SAT 95–99
[2019-11-20] MEDS: Acetaminophen 500 MG TAB 1000 MG PO ×2 (06:39→13:31)
[2019-11-20] MEDS: Lactated Ringers 1,000 ML 80 ML IV (06:39)
[2019-11-20] MEDS: Celecoxib 200 MG CAP 400 MG PO (06:39)
--- NOTE | 2019-11-20 06:45 | DI.RAD_ITS ---
EXAM: XR HIP LT IN OR CLINICAL HISTORY: OA LEFT HIP. TECHNIQUE: 2D and realtime digital imaging was performed. COMPARISON: No exams were available for comparison FINDINGS: Fluoroscopy was provided in the OR. Hard copy images show placement of a left total hip prosthesis. The alignment appears satisfactory. FLUORO TIME: 48.6 seconds RADIATION DOSE DELIVERED:
--- NOTE | 2019-11-20 07:02 | W.PREOPHP ---
Date of service: 11/20/19 Time of Service: 07:02 Assessment and Plan Assessment and plan (1) Primary osteoarthritis of left hip: Status: Chronic Assessment and plan: Ni is a 74-year-old who has known left hip arthritis. This is been documented in previous office note. A complete history and physical was performed by her primary care provider on October 24, 2019. Please see this note for complete history and physical. She has limited range of motion of the left hip with notable pain. She has arthritic findings on x-ray. I had a long discussion in regards to surgical replacement of the hip. I went over in detail the possible complications of hip replacement. These include but are not limited to bleeding, infection, pain, stiffness, weakness, damage to nerves (especially the lateral femoral cutaneous nerve), damage to vessels, damage to muscle and tendon, fracture, leg length inequality, wound healing complications, instability, dislocation, and blood clot. Questions were answered. I again expressed that this is a surgery to improve functional quality of life. After a review of the presented information and risks, Ni desired to proceed. History of Present Illness History of Present Illness Chief Complaint: left hip pain Narrative: Matilde is a 74-year-old who has known left hip arthritis. She was seen in the office several months ago where we discussed treatment options she agreed to proceed with a hip replacement. She has had some issues with high blood pressure, hyponatremia, and chronic bilateral leg edema. This has been managed and modified by her primary care provider. She denies any other chest pain, shortness of breath, sick contacts, cough, fever, chills. Review of Systems All systems reviewed & are unremarkable except as noted in HPI and below PFSH Medical History Depression (Resolved) Essential hypertension (Chronic) Hx of cardiac murmur (Acute) PT. STATES SHE HAS F/U WITH PLUMBERS AND TOP HELPERS, AND IS BENIGN. Hyperlipemia (Chronic) Intraductal carcinoma of left breast (Resolved ~03/1996) S/p lumpectomy and radiation Migraine headache (Resolved) Mild non proliferative diabetic retinopathy (Chronic) Prediabetes (Chronic) PT. STATES SHE IS NOW DIABETIC. CONTROLLED WITH DIET AND EXERCISE Type 2 diabetes mellitus (Resolved) Surgical History History of bilateral oophorectomy (Inactive ~1983) Hx of bursectomy (Inactive 01/13/10) Left trochanteric bursa S/P breast lumpectomy (Inactive ~04/1996) S/P colonoscopy (Inactive) S/P cubital tunnel release (Inactive 01/24/06) Left arm S/P excision of ganglion cyst (Inactive 11/12/18) Excision of two ganglion cysts, dorsum of the right ring finge S/P tonsillectomy (Inactive) Status post abdominal hysterectomy (Inactive) Status post cataract extraction (Inactive 12/21/12) PT. 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 Son No problems noted. Son Essential hypertension Depression Hyperlipidemia Son Depression Daughter No problems noted. Maternal Grandfather , at 45 of MD Heart disease Myocardial infarction Maternal Grandmother , at 70 Heart disease Paternal Grandfather , at 40 of MD Heart disease Myocardial infarction Paternal Grandmother , at 65 Heart disease Myocardial infarction Social History Smoking/Tobacco Use Status: Never Alcohol Intake: never Drug use: Never Substance use type: does not use Counseling given: No Counseling provided: none Caregiver/Support person: No Household members: none Housing: apartment Communication Needs: None Do you need help understanding health information?: Never Sexually active: No Do you think of yourself as: straight/heterosexual Current gender identity: female What is your relationship status?: How often do you talk on the phone with friends or family?: three or more times per week How often do you get together with friends or relatives?: twice per week How often do you attend voodoo or restoration services?: 1-3 times per year Do you belong to any clubs or organized social groups?: no Panel score (0-1 are the most socially isolated patients): 1 What type of physical activity do you participate in: other Details: Exercise bike, gazelle Duration: 15-30 minutes/day Frequency: 5-6 times per week Katie/Hinduism: Faith Special katie needs: No Seatbelt use: always Helmet use: No Drive intox or ride w/intox wrecker driver: No Do you feel safe at home: Yes Do you feel safe in your relationship?: Yes History History 5 Para Hx # Term Pregnancies Multiple births Hx # Pregnancies Ectopic pregnancies AB induced Hx Number of Living Children 4 AB spontaneous 1 Meds Home Medications and Allergies Home Medications Medication Instructions Recorded Confirmed Type lancets [OneTouch UltraSoft #100 ea 05/03/14 11/14/19 History Lancets] betamethasone, augmented 0.05 % 1 applic TP DAILY PRN #50 gm 03/07/19 11/18/19 Rx topical cream B-Complex With B-12 1 tab PO DAILY 03/08/19 11/20/19 History blood sugar diagnostic #100 each 11/07/19 11/14/19 Rx nifedipine 30 mg tablet,extended 30 mg PO DAILY #30 tab 11/07/19 11/20/19 Rx release Allergies Allergy/AdvReac Type Severity Reaction Status Date / Time lisinopril AdvReac Intermediate Cough Verified 11/18/19 10:52 amlodipine AdvReac Mild Swelling/Ed Unverified 11/18/19 10:52 sara morphine AdvReac Mild nausea Verified 11/18/19 10:52 oxycodone [From Percocet] AdvReac Mild Nausea Unverified 11/18/19 10:53 sulfamethoxazole AdvReac Mild nausea Verified 11/18/19 10:52 [From Bactrim] trimethoprim [From Bactrim] AdvReac Mild nausea Verified 11/18/19 10:52 losartan AdvReac Unknown Pt reports Verified 11/18/19 10:52 redness and pain to feet -BR clindamycin AdvReac nausea/acid Verified 11/18/19 10:52 stomach red wine AdvReac VERY Uncoded 11/18/19 10:52 UNCOMFORTABLE, LIKE BP IS UP Results Last Vital Signs Temp 36.2 C L 11/20/19 06:25 Pulse 96 H 11/20/19 06:25 Resp 16 11/20/19 06:25 BP 149/85 H 11/20/19 06:25 Pulse Ox 98 11/20/19 06:25
[2019-11-20] MEDS: ceFAZolin 2 GM/50 ML BAG IVPB (07:50)
[2019-11-20] MEDS: Bupivacaine 0.25% Pres-Free 30 ML VIAL (09:06)
[2019-11-20] MEDS: Ketorolac 30 MG/ML VIAL (09:07)
[2019-11-20] MEDS: fentaNYL 100 MCG/2 ML VIAL IVP (10:10)
--- NOTE | 2019-11-20 10:18 | W.PM.OP ---
Date of service: 11/20/19 Time of Service: 10:18 Operative Note Operative Note DATE OF PROCEDURE: 11/20/19 PRE-OP DIAGNOSIS: Left Hip Osteoarthritis POST-OP DIAGNOSIS: same PROCEDURE: Left Anterior Total Hip Arthroplasty SURGEON: Luis Warren MEASUREMENT OPERATOR: Kenia Abrams ANESTHESIA: spinal ESTIMATED BLOOD LOSS: 400 PATHOLOGY: none sent COMPLICATIONS: None Patient was transported to: PACU Patient's condition: stable Implants: 1. Depuy [place] Acetabular Component, 50mm 2. Depuy Acetabular Liner, [id number] 3. Depuy Corail Coxa Vara Femoral Stem, Size 11 4. Depuy Altrx Ceramic Femoral Head, Size 32+1mm Indications: I have seen Ni in clinic for symptoms of hip arthritis, confirmed with radiographic findings. She has exhausted nonoperative methods and was having significant limitations in daily function and desired better function and less pain. I discussed the technical details of a hip replacement. I explained the risks of the procedure to include, but not limited to, bleeding, infection, pain, stiffness, fracture, damage to nerves and vessels, damage to muscles and tendons, loosening, instability, leg length inequality, need for repeat procedure, blood clot and cardiopulmonary demise. Despite these risks, iN elected to proceed. Findings: There was significant signs of arthritis throughout the hip. There notable superior acetabular osteophytes. Procedure Description: Ni was greeted in the preoperative holding area where the correct side was identified and marked. The consent was reviewed with the patient and signed. The history and physical was updated. All questions were answered. She was taken back to the operating room. A spinal anesthestic was then administered. The patient was placed into the supine position on the operating room table. The patient was then positioned onto the ARCH table. Both feet were wrapped with Webrill cotton wrap along with Coban. The feet were placed in specialized boots for the ARCH table, well seated within the boot and secured. SCDs were applied. The patient was then slid down onto a peroneal post and the nonoperative leg was secured in a leg ca attached to the table. The operative side was placed into the ARCH table attachment and bed height and positioning was secured. A preoperative AP pelvis was obtained to serve as a reference for determining leg lengths. Prophylactic antibiotics in the form of Cefazolin were administered. 1g of Tranxemic Acid was given intravenously within 30 minutes of incision. The left leg was then prepped with Chloraprep and draped in a standard fashion. A second prep with Chloraprep was performed prior to placement of a shower-curtain type drape with Iodine impregnated skin protection. A timeout to confirm correct identity, side and site, procedure, allergies, anesthesia, and medical concerns was performed. An obliquely oriented incision was made starting lateral to the ASIS and running distal over the Tensor Fascia Angela (TFL) muscle belly toward the fibular head, approximately 10cm. The skin and soft tissue was dissected sharply, through Sacha?s fascia, and to the fascia of the TFL. With the fascia and superior border of the IT band identified, the fascia was incised with a new knife just above any perforators from the IT band. The TFL muscle belly was bluntly dissected away from the fascia and moved laterally. The fat between TFL and rectus was identified to ensure the dissection was not within the TFL. Blunt dissection created space between abductors and the capsule and retractor was placed over the lateral femoral neck. The fibers of the rectus femoris tendon were identified and these were freed from the anterior capsule. A second cobra retractor was placed around the medial femoral neck. The TFL was further retracted laterally to show the deep fascia. Careful dissection through this layer identified three main crossing vessels of the lateral femoral circumflex. These were cauterized in multiple locations and then cut without any noticeable bleeding. The TFL was further released bluntly from the deep fascia to expose anterior hip capsule and fat . A T-capsulotomy was then performed starting at the superior lateral acetabulum and moving distally to the intertrochanteric ridge. These capsular flaps were tagged with a No. 1 Ethibond and elevated from within. The capsular flaps were released to the shoulder of the lateral neck and to the lesser trochanter to give excellent visualization of the proximal femur. A neck osteotomy was performed using an oscillating saw based on preoperative templates. This cut started in the shoulder and of the lateral neck and exited medially. The saw was at all times directed medially to avoid injury to the greater trochanter. 6cm of traction was applied to the leg and the osteotomy opened. The femoral head was removed with a corkscrew, making sure to protect the TFL on its exit. This was measured on the back table to determing the starting reamer size. Portions of the rectus obscuring visualization were minimally elevated off the superior acetabulum. An anterior retractor was placed over the anterior wall between capsule and labrum and attached to the Gripper retraction system. A posterior retractor was placed similarly. This provided excellent visualization. The contents of the cotyloid fossa were removed with electrocautery and the labrum was removed with a knife. There was a notable floor osteophyte. There was significant chondromalacia of the superior acetabulum. Acetabular reaming began with a 48mm reamer. This first reaming was directed anterior to posterior and medial to get down to the true floor. This was inspected and reamed until the true floor was reached. The anterior retractor was then released and entry and exit was provided by traction on the capsular flaps. I then reamed sequentially up to a 50mm reamer where good fit was obtained. The larger reamers were oriented based on anatomical reference of the anterior and lateral monreal to ensure proper abduction and anteversion. Positioning and size was confirmed with the fluoroscopy. A 50mm Depuy [place] acetabular component was selected. The deep tissues were irrigated. The acetabular component was then impacted in a position of about 40-45 degrees of abduction and 15-20 degrees of anteversion, using the patient?s anatomy as the ultimate landmark. Fluoroscopy was used to confirm this. There was excellent supervisor carton and can supply of the acetabular component and the inserting handle was removed. The acetabular liner, Depuy [id number] polyethylene liner, was inserted and lined up with the tines of the acetabular component. There was no soft tissue interposition. The liner was then impacted into position and confirmed to be well-seated. A portion of the apolinar-articular cocktail was then injected around the acetabulum into the capsule and periosteum. This cocktail consisted of 50cc of 0.25% Bupivicaine and 20cc of Exparel, expanded to a total of 120cc. Traction was released from the femur. The leg was rotated to 120 degrees. Any remaining medial capsule was released until the lesser trochanter was easily palpable. A Martins retractor was placed medially. The lateral capsule was further released into the shoulder to allow access to the greater trochanter. A Martins retractor was placed over the greater trochanter which allowed the trochanter to flip in front of the capsule for excellent exposure. The leg was brought down into maximal extension and 20 degrees of adduction while ensuring there was no impingement on the acetabulum. Any remnant capsule within the trochanter was released. Piriformis and obturator externis were identified and protected. There was excellent access to the proximal femur. The lateral neck remnant was removed with a rongeur. A blunt canal probe was used to identify the canal and trajectory for later broaching. A box osteotome initiated the broach course. A small curved rasp and a curved curette were used to work laterally. Broaching then began with a size 8 Corail broach. This was inserted manually around the trochanter and into the canal before mallet blows. The broach was seated to a few millimeters below the cut level based on the neck cut and the preoperative template. Sequential broaching was continued with the ShopSuey pneumatic broaching device until a tight fit was obtained with good rotational control of the femur. A trial standard neck was inserted along with a +1 trial head. The leg was brought out of extension and adduction and then reduced with traction and internal rotation. The leg was stable anteriorly in a position of 30 degrees of extension and 90 degrees of external rotation. Fluoroscopy was used to ensure there was no fracture and the stem was seated well. Leg lengths were checked with an AP pelvis and pelvic reference points. [employer] navigation system was used to confirm appropriate positioning and leg length and offset. There was some increase in leg length and under recreation of offset, but going with the coxa vara improved offset but still left her a little long. So, I dislocated the hip and impacted the broach another 3-4mm. This was planed and then the hip was trialed with a Coxa Vara 32+1. This was reduced and JointPoint utilized to confirm approrpiate positioning and this appropriately shortened her by about 2mm and recreated the offset. Once content with the desired offset and leg lengths, the leg was brought back into extension, external rotation and adduction. The periosteum and surrounding tissue was injected with remaining portion of the apolinar-articular cocktail. The proximal femur was irrigated as well as the deep tissues. The Depuy Corail Coxa Vara stem, size 11, was then manually inserted into the proximal femur making sure to control rotation. It was then malleted into position with light blows, giving breaks to allow bone expansion and decrease risk of fracture. The selected Depuy Altrx Ceramic Head, size 32+1mm, was then placed onto the clean and dry trunnion and secured with impaction onto the tapered fit. The leg was brought back out of extension and adduction and reduced with traction and internal rotation. Stability was confirmed with no shuck at 90 degrees of external rotation and 30 degrees of extension. No impingement through range of motion arc. Final x-ray images were obtained with fluoroscopy to confirm adequate positioning and no intraoperative fracture. The deep tissues were thoroughly irrigated with Irrisept chlorhexadine solution. The second dose of TXA 1g was administered intravenously.The capsule was then reapproximated with the previously placed Ethibond sutures. The TFL fascia was finally closed with a No. 2 Stratafix, barbed suture. Deep tissues were then reapproximated with 0 Vicryl and a running 2-0 Vicryl. The skin was closed with a running 4-0 Monocryl in a subcuticular fashion. This was reinforced with skin glue. A Mepilex silver dressing was applied. At the end of the case, all counts were correct. Tia was transferred to the hospital bed without difficulty and suffering no apparent complication. Ni has a good prognosis. Physical therapy will start today and without restrictions, weight-bearing as tolerated. Aspirin 81mg BID will be used for DVT prophylaxis.
--- NOTE | 2019-11-20 11:20 | PT.INIE ---
Date of service: 11/20/19 Time of Service: 11:20 PT Notes Physical Therapy Inpatient Initial Evaluation Date: 11/20/2019 Kelvin Referring Doctor: PT Orders: PT CONSULT: Status post Ortho surgery. Status post left VANESA. Precautions: Fall. Standard. Patient Profile/Admitting Diagnosis: Ni is a 74-year-old female with primary unilateral osteoarthritis of the left hip status post left total hip arthroplasty on postoperative day 0. PMHX: Medical History Depression (Resolved) Essential hypertension (Chronic) Hx of cardiac murmur (Acute) PT. STATES SHE HAS F/U WITH IRON HANDLER, AND IS BENIGN. Hyperlipemia (Chronic) Intraductal carcinoma of left breast (Resolved ~03/1996) S/p lumpectomy and radiation Migraine headache (Resolved) Mild non proliferative diabetic retinopathy (Chronic) Prediabetes (Chronic) PT. STATES SHE IS NOW DIABETIC. CONTROLLED WITH DIET AND EXERCISE Type 2 diabetes mellitus (Resolved) Surgical History History of bilateral oophorectomy (Inactive ~1983) Hx of bursectomy (Inactive 01/13/10) Left trochanteric bursa S/P breast lumpectomy (Inactive ~04/1996) S/P colonoscopy (Inactive) S/P cubital tunnel release (Inactive 01/24/06) Left arm S/P excision of ganglion cyst (Inactive 11/12/18) Excision of two ganglion cysts, dorsum of the right ring finge S/P tonsillectomy (Inactive) Status post abdominal hysterectomy (Inactive) Status post cataract extraction (Inactive 12/21/12) PT. STATES THIS IS INCORRECT, SHE HAS NEVER HAD CATARACT SURGERY Status post total hip replacement, 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, left (Inactive 12/01/03) Status post total knee replacement, right (Inactive 10/25/10) Social History/Home Situation: Patient lives alone on the ground floor of an apartment building with 3 steps to enter and rails on both sides. She is independent with all aspects of ADLs prior to surgery. She reports that she brings with her a front wheeled walker or a cane in her car in case she would need either of them. Patient still drives. Equipment Owned/DME: Front wheeled walker, single-point cane, grab bars, shower chair, manual recliner Subjective: Patient denies pain in the left hip, dizziness, chest pain, lightheadedness throughout PT session. She states that she only has a little ache with weight bearing that subsided with rest. Objective: General Observation: IV in the right R UE. Bilateral TEDS on. Mental Status: Alert and oriented times Pain: Reports ache in the left hip with weightbearing Vital Signs: Within normal limits as measured by nurse Fabiano before and after PT session ROM: Right Upper Extremity: Shoulder Flexion WFL. Shoulder abduction WFL. Elbow flexion WFL. Wrist flexion WFL. Opening and closing of hand WFL. Left Upper Extremity: Shoulder Flexion WFL. Shoulder abduction WFL. Elbow flexion WFL. Wrist flexion WFL. Opening and closing of hand WFL. Right Lower Extremity: Hip flexion WFL. Hip abduction WFL. Knee flexion WFL. Ankle dorsiflexion WFL. Ankle plantarflexion WFL. Left Lower Extremity: Hip flexion WFL. Hip abduction WFL. Knee flexion WFL. Ankle dorsiflexion WFL. Ankle plantarflexion WFL. Strength: Right Upper Extremity: Shoulder flexors 5/5. Shoulder abductors 5/5. Elbow flexors 5/5. Elbow extensors 5/5. Motion Picture Camera Lens Technician strong. Left Upper Extremity: Shoulder flexors 5/5. Shoulder abductors 5/5. Elbow flexors 5/5. Elbow extensors 5/5. Motion Picture Camera Lens Technician strong. Right Lower Extremity: Hip flexors 5/5. Hip abductors 5/5. Knee flexors 5/5. Knee extensors 5/5. Ankle dorsiflexors 5/5. Ankle plantarflexors 5/5. Left Lower Extremity:Hip flexors 4/5. Hip abductors 4/5. Knee flexors 4/5. Knee extensors 4/5. Ankle dorsiflexors 5/5. Ankle plantarflexors 5/5. Sensation: Intact as to pain and pressure on bilateral lower extremities. Bed Mobility/Transfers: Supine to sit supervision with HOB at 30 degrees Sit to stand standby assist with minimal verbal cueing for hand placement, needs front wheeled walker Stand to sit standby assist with minimal verbal cueing for hand placement Bed to chair standby assist with minimal verbal cueing for hand placement, needs front wheeled walker Chair to bed standby assist with minimal verbal cueing for hand placement, needs front wheeled walker Gait: Patient managed level surface ambulation of 100 feet with front wheeled walker with WBAT on left requiring SBA and wheelchair follow of PT. Step through gait pattern. Reported a mild ache in the left hip. No LOB. Alanna reduced due to postoperative status. Denies dizziness, headache, chest pain throughout activity. Balance: Static Sitting: Normal Dynamic Sitting: Normal Static Standing: Fair Dynamic Standing: Fair Special Tests: Mobility Limitations Standardized Measure [facility] AM-PAC 6 clicks Basic Mobility Inpatient Short Form: Raw Score: 23 CMS Score: 11% deficit Informed Consent/Education: Patient instructed in purpose of PT consult and plan of care. Assessment: Ni demonstrates functional mobility decline requiring use of front wheeled walker for all mobility ADL performance, impairment with balance, unsafe gait pattern, and generalized weakness resulting from postoperative status. Patient presents with clinical signs and symptoms consistent with current/admitting diagnoses that have resulted to mobility limitations, gait instability, generalized weakness, and impairment of motor control as demonstrated by the following impairment level findings: 1. Decreased strength to left hip major muscle groups 2. Impaired standing balance 3. Impaired activity tolerance Impairments are contributing to the following functional limitations: 1. Inability to safely ambulate without assistive device and physical assistance 2. Increase completion time for mobility ADL performance 3. Increased fall risk 4. Inability to negotiate steps alone safely Patient is assessed as a 50812 moderate complexity based on the following: History: 74-year-old female with impairment level findings, functional limitations, and past medical history as indicated above Examination: Demonstrable impairment in strength, balance, and mobility level with underlying impairments and functional limitations as documented above Presentation:Evolving Decision Makin moderate complexity Goals: Goals X 1 day 1. Supine-Sit independent 2. Sit-Supine independent 3. Sit-Stand independent 4. Stand-Sit independent 5. Bed-Chair independent 6. Chair-Bed independent 7. Independent gait on level surface with use of least restrictive device for at least 300 feet without report of pain nor dyspnea 8. Independent stair negotiation while holding onto bilateral rails for at least 5 steps without report of pain nor dyspnea 9. Independent with home exercise program 10. Good static and dynamic standing balance/tolerance Plan of Care/Treatment Plan: Patient will be seen once more this afternoon for stair negotiation training and functional mobility progression using the front wheeled walker prior to discharge from skilled physical therapy services. PT intervention: Session today consisted of initial physical therapy evaluation as well as education/training on mobility ADL performance using front wheeled walker. Patient was also educated on beginner level muscle setting exercises to be done inside her room every hour. Exercises consisted of bilateral gluteal squeezes, bilateral quadricep squeezes, and ankle pumping. DISCHARGE RECOMMENDATIONS: Home when medically cleared by orthopedic surgeon. May benefit from outpatient physical therapy services according to orthopedic surgeon's timeline recommendations. TREATMENT CODE/TIME: 47450 x 32 minutes beginning at 11:20 AM. Thank you very much for this referral. Arpita Castillo PT, DPT, CLT [facility] [place], [place]
[2019-11-20] MEDS: ceFAZolin 1 GM/50 ML BAG IVPB (13:31)
--- NOTE | 2019-11-20 14:50 | DSE_ITS ---
Date of service: 11/20/19 Time of Service: 14:50 DS: Diagnosis Discharge Diagnosis (1) Primary osteoarthritis of left hip: Status: Chronic Discharge Plan Disposition Patient Disposition: HOME Condition: Good Discharge Details Reason For Visit: Left hip arthritis Admit Date/Time: 11/20/19 06:05 Admit Provider: Luis Warren Attending Provider: Luis Warren [facility] Course: Patient was admitted to the medical/surgical floor following the procedure. The surgery was tolerated well without any notable medical, surgical, or anesthetic complications. Mobilization began postoperatively. Ni was voiding spontaneously. Vitals were stable. Physical therapy worked with the patient and was cleared for discharge home. No acute medical issues. Pain was controlled on oral regimen. Home Meds and New Rx's Prescriptions: New celecoxib 200 mg capsule 200 mg PO BID PRN (Reason: pain) Qty: 60 RF: 1 aspirin 81 mg tablet,delayed release (DR/EC) 81 mg PO BID Qty: 60 RF: 0 acetaminophen 500 mg tablet 1,000 mg PO Q8H PRN (Reason: pain) Qty: 90 RF: 3 hydromorphone 2 mg tablet 1 - 2 mg PO Q4H PRN (Reason: pain) Qty: 12 RF: 0 docusate sodium [Colace] 100 mg capsule 100 mg PO BID PRNQty: 10 RF: 0 ondansetron 4 mg tablet,disintegrating 4 mg PO Q6H PRNQty: 12 RF: 0 Continued betamethasone, augmented 0.05 % cream 1 applic TP DAILY PRN (Reason: skin irritation) Qty: 50 RF: 2 nifedipine 30 mg tablet extended release 30 mg PO DAILY Qty: 30 RF: 0 B-Complex With B-12 2.5 mg-2.5 mg- 5 mg-100 mcg Tablet 1 tab PO DAILY RF: 0 No Action (DME) blood sugar diagnostic [OneTouch Ultra Blue Test Strip] Strip 1 ea Miscellaneous DAILY Qty: 100 RF: 4 (DME) lancets [OneTouch UltraSoft Lancets] 1 EACH misc 1 ea Miscellaneous DAILY Qty: 100 RF: 4 Discharge Instructions Additional Instructions: Dr. Warren's Total Hip Discharge Instructions Activity: The most important activity is to walk. You should try to take short walks a few times a day. You have no restrictions on movement or positioning, but do not try to force what you do. You will find some stiffness and weakness with hip flexion (lifting your knee). Do not try to strengthen this too early, continue to practice walking and stairs and this will come. - Outpatient physical therapy can be helpful to help return you to a normal gait and improve your flexibility and strength. This can start around 2 weeks. For most patients, it?s not necessary. Usually this is determined at the time of discharge or at the first post-operative visit. - You should wear the GIOVANI hose on both legs for 2 weeks. You may remove those at night. These prevent blood pooling and swelling. Dressing: Keep the surgical dressing in place for at least one week, although it may stay in place untill follow-up. It may get wet after 3 days but avoid soaking the dressing. If it gets wet, just lightly pat dry. Most people prefer to cover the dressing with some ClingWrap, Saran Wrap, to keep it dry. After the first week it may be removed if desired and then replaced with light gauze and tape or nothing. It is important to always keep some gauze or the dressing between skin folds, especially when you are sitting, so the incision is not folded over on itself at the belly fold. Medications: - You should take Tylenol and an anti-inflammatory Celebrex as your primary pain control medications - You have been prescribed a stronger pain medication Hydromorphone for ysabel akthrough pain, take as needed as prescribed. This may cause nausea although it is the least likely. I have called in nausea medication as well. - You have also been prescribed a stomach acid reduction agent Pantoprozole to help reduce stomach acid and reflux. - You will be taking Aspirin 81mg twice a day for DVT prevention unless instructed otherwise. - If you have constipation you should take Colace or Miralax (both [id number]). It takes most people 3-4 days to have a bowel movement. Follow-up: 2 weeks. If you have any acute concerns or questions, please do not hesitate to contact the office at [phone]. You may contact Dr. Warren with any questions after hours through the hospital at [phone] or on his cell phone at [phone]. Referrals: Luis Warren MD [ [facility]] - 12/09/19 2:45 pm Activity:: Activity as Tolerated Equipment/Supplies:: Walker Diet:: As Tolerated Discharge Orders Discharge Orders: Discharge Order (Routine); Ordered 11/20/19 Ordered By: Luis Warren DS: Summary Status at Discharge Functional status at discharge: uses cane/walker Overall status at discharge: patient is progressing back to baseline Mental Status: mental status grossly normal Speech and Movement: speech and movement normal Mood: congruent mood Affect: normal affect Exam Psych Mental Status: mental status grossly normal Speech and Movement: speech and movement normal Mood: congruent mood Affect: normal affect DS: Data Vitals/I&O Vitals and I&O: Vital Signs Temperature 36.4 C L 11/20/19 12:23 Temperature Source Temporal Artery Scan 11/20/19 12:23 Pulse 91 H 11/20/19 12:23 Pulse Rhythm Regular 11/20/19 12:26 Respiratory Rate 20 11/20/19 12:23 Respiratory Effort 11/20/19 12:26 Respiratory Depth Normal 11/20/19 12:26 Respiratory Pattern Normal 11/20/19 12:26 Blood Pressure 129/79 11/20/19 12:23 Pulse Oximetry 98 11/20/19 12:23 Respiratory End-tidal CO2 30 11/20/19 10:22 Oxygen Delivery Method Room Air 11/20/19 12:23 Oxygen Flow Rate 0 11/20/19 12:23 Pain Level 1 11/20/19 12:23 Comment 11/20/19 12:23 Intake & Output 11/19/19 11/20/19 11/20/19 23:59 11:59 23:59 Intake Total 585 / 1035 450 / 1035 Output Total 400 / 400 Balance 185 / 635 450 / 635 Weight 86.6 kg Intake: IV 585 / 585 Oral 450 / 450 Output: Estimated Blood Loss 400 / 400 Other: Comment Voided quantity sufficient while up with PT. Emesis Description None PFSH Medical History Depression (Resolved) Essential hypertension (Chronic) Hx of cardiac murmur (Acute) PT. STATES SHE HAS F/U WITH [employer], AND IS BENIGN. Hyperlipemia (Chronic) Intraductal carcinoma of left breast (Resolved ~03/1996) S/p lumpectomy and radiation Migraine headache (Resolved) Mild non proliferative diabetic retinopathy (Chronic) Prediabetes (Chronic) PT. STATES SHE IS NOW DIABETIC. CONTROLLED WITH DIET AND EXERCISE Type 2 diabetes mellitus (Resolved) Surgical History History of bilateral oophorectomy (Inactive ~1983) Hx of bursectomy (Inactive 01/13/10) Left trochanteric bursa S/P breast lumpectomy (Inactive ~04/1996) S/P colonoscopy (Inactive) S/P cubital tunnel release (Inactive 01/24/06) Left arm S/P excision of ganglion cyst (Inactive 11/12/18) Excision of two ganglion cysts, dorsum of the right ring finge S/P tonsillectomy (Inactive) Status post abdominal hysterectomy (Inactive) Status post cataract extraction (Inactive 12/21/12) PT. 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 Son No problems noted. Son Essential hypertension Depression Hyperlipidemia Son Depression Daughter No problems noted. Maternal Grandfather , at 45 of MS Heart disease Myocardial infarction Maternal Grandmother , at 70 Heart disease Paternal Grandfather , at 40 of MS Heart disease Myocardial infarction Paternal Grandmother , at 65 Heart disease Myocardial infarction Social History Smoking/Tobacco Use Status: Never Alcohol Intake: never Drug use: Never Substance use type: does not use Counseling given: No Counseling provided: none Caregiver/Support person: No Household members: none Housing: apartment Communication Needs: None Do you need help understanding health information?: Never Sexually active: No Do you think of yourself as: straight/heterosexual Current gender identity: female What is your relationship status?: How often do you talk on the phone with friends or family?: three or more times per week How often do you get together with friends or relatives?: twice per week How often do you attend bahai or confucianism services?: 1-3 times per year Do you belong to any clubs or organized social groups?: no Panel score (0-1 are the most socially isolated patients): 1 What type of physical activity do you participate in: other Details: Exercise bike, gazelle Duration: 15-30 minutes/day Frequency: 5-6 times per week Katie/Scientologist: Mu-Ism Special katie needs: No Seatbelt use: always Helmet use: No Drive intox or ride w/intox auto transport driver: No Do you feel safe at home: Yes Do you feel safe in your relationship?: Yes History History 5 Para Hx # Term Pregnancies Multiple births Hx # Pregnancies Ectopic pregnancies AB induced Hx Number of Living Children 4 AB spontaneous 1
--- NOTE | 2019-11-24 16:00 | INDS_ITS ---
Date of service: 11/24/19 PT Notes Visit Reasons: Left hip arthritis Physical Therapy Inpatient Discharge Summary Date: 11/24/2019 Dates of Service: 11/20/2019 only Referring Doctor: Ajay Warren MD PT Orders: PT CONSULT: Status post Ortho surgery. Status post left VANESA. Precautions: Fall. Standard. Patient Profile/Admitting Diagnosis: Ni is a 74-year-old female with primary unilateral osteoarthritis of the left hip status post left total hip arthroplasty on postoperative day 0 on day of discharge. PMHX: Medical History Depression (Resolved) Essential hypertension (Chronic) Hx of cardiac murmur (Acute) PT. 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 Hyperlipemia (Chronic) Intraductal carcinoma of left breast (Resolved ~03/1996) S/p lumpectomy and radiation Migraine headache (Resolved) Mild non proliferative diabetic retinopathy (Chronic) Prediabetes (Chronic) PT. STATES SHE IS NOW DIABETIC. CONTROLLED WITH DIET AND EXERCISE Type 2 diabetes mellitus (Resolved) Surgical History History of bilateral oophorectomy (Inactive ~1983) Hx of bursectomy (Inactive 01/13/10) Left trochanteric bursa S/P breast lumpectomy (Inactive ~04/1996) S/P colonoscopy (Inactive) S/P cubital tunnel release (Inactive 01/24/06) Left arm S/P excision of ganglion cyst (Inactive 11/12/18) Excision of two ganglion cysts, dorsum of the right ring finge S/P tonsillectomy (Inactive) Status post abdominal hysterectomy (Inactive) Status post cataract extraction (Inactive 12/21/12) PT. STATES THIS IS INCORRECT, SHE HAS NEVER HAD CATARACT SURGERY Status post total hip replacement, 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, left (Inactive 12/01/03) Status post total knee replacement, right (Inactive 10/25/10) Social History/Home Situation: Patient lives alone on the ground floor of an apartment building with 3 steps to enter and rails on both sides. She is independent with all aspects of ADLs prior to surgery. She reports that she brings with her a front wheeled walker or a cane in her car in case she would need either of them. Patient still drives. Equipment Owned/DME: Front wheeled walker, single-point cane, grab bars, shower chair, manual recliner Subjective: NT Objective: General Observation: NT Mental Status: NT Pain: NT Vital Signs: NT ROM: Right Upper Extremity: Shoulder Flexion WFL. Shoulder abduction WFL. Elbow flexion WFL. Wrist flexion WFL. Opening and closing of hand WFL. Left Upper Extremity: Shoulder Flexion WFL. Shoulder abduction WFL. Elbow flexion WFL. Wrist flexion WFL. Opening and closing of hand WFL. Right Lower Extremity: Hip flexion WFL. Hip abduction WFL. Knee flexion WFL. Ankle dorsiflexion WFL. Ankle plantarflexion WFL. Left Lower Extremity: Hip flexion WFL. Hip abduction WFL. Knee flexion WFL. Ankle dorsiflexion WFL. Ankle plantarflexion WFL. Strength: Right Upper Extremity: Shoulder flexors 5/5. Shoulder abductors 5/5. Elbow flexors 5/5. Elbow extensors 5/5. Orthopaedic General strong. Left Upper Extremity: Shoulder flexors 5/5. Shoulder abductors 5/5. Elbow flexors 5/5. Elbow extensors 5/5. Orthopaedic General strong. Right Lower Extremity: Hip flexors 5/5. Hip abductors 5/5. Knee flexors 5/5. Knee extensors 5/5. Ankle dorsiflexors 5/5. Ankle plantarflexors 5/5. Left Lower Extremity:Hip flexors 4/5. Hip abductors 4/5. Knee flexors 4/5. Knee extensors 4/5. Ankle dorsiflexors 5/5. Ankle plantarflexors 5/5. Sensation: Intact as to pain and pressure on bilateral lower extremities. Bed Mobility/Transfers: Supine to sit supervision with HOB at 30 degrees Sit to stand standby assist with minimal verbal cueing for hand placement, needs front wheeled walker Stand to sit standby assist with minimal verbal cueing for hand placement Bed to chair standby assist with minimal verbal cueing for hand placement, needs front wheeled walker Chair to bed standby assist with minimal verbal cueing for hand placement, needs front wheeled walker Gait: Patient managed level surface ambulation of 100 feet with front wheeled walker with WBAT on left requiring SBA and wheelchair follow of PT. Step through gait pattern. Reported a mild ache in the left hip. No LOB. Alanna reduced due to postoperative status. Denies dizziness, headache, chest pain throughout activity. Balance: Static Sitting: Normal Dynamic Sitting: Normal Static Standing: Fair Dynamic Standing: Fair Assessment: Ni continues to demonstrate functional mobility decline requiring use of front wheeled walker for all mobility ADL performance, impairment with balance, unsafe gait pattern, and generalized weakness resulting from postoperative status. Goals: Goals X 1 day 1. Supine-Sit independent NOT MET 2. Sit-Supine independent NOT MET 3. Sit-Stand independent NOT MET 4. Stand-Sit independent NOT MET 5. Bed-Chair independent NOT MET 6. Chair-Bed independent NOT MET 7. Independent gait on level surface with use of least restrictive device for at least 300 feet without report of pain nor dyspnea NOT MET 8. Independent stair negotiation while holding onto bilateral rails for at least 5 steps without report of pain nor dyspnea NOT MET 9. Independent with home exercise program NOT MET 10. Good static and dynamic standing balance/tolerance NOT MET DISCHARGE RECOMMENDATIONS: Home when medically cleared by orthopedic surgeon. May benefit from outpatient physical therapy services according to orthopedic surgeon's timeline recommendations. TREATMENT CODE/TIME: 95596 x 25 minutes beginning at 13:30 PM. Thank you very much for this referral. Arpita Castillo PT, DPT, CLT [facility] [place], [place]
== END 2019-11-20 16:28 | disposition home or self-care (01) ==
LOC: PDS 11:12 → MS 11:12
PROVIDERS: Admitting Provider Student in an Organized Health Care Education/Training Program; PCP Nurse Practitioner Family; Visit Provider Student in an Organized Health Care Education/Training Program
PROC: 0SRB04A Replacement of Left Hip Joint with Ceramic on Polyethylene Synthetic Substitute, Uncemented, Open Approach (ICD-10-PCS; CPT 27130; principal; 2019-11-20 07:30)
DX: M16.12 Unilateral primary osteoarthritis, left hip (principal); M25.552 Pain in left hip; Z96.642 Presence of left artificial hip joint; I10 Essential (primary) hypertension
CPT/HCPCS: 27130; C1776; 97162; 97530; NC; 73501; G0378; J0690; J1885; J2001; J3010

== ENCOUNTER 2019-12-09 15:38 | Outpatient (CLI) | payer MEDICARE, MEDICAID, SELFPAY ==
--- NOTE | 2019-12-09 14:15 | DI.RAD_ITS ---
EXAM: XR HIP LT COMPLETE AP PELVIS INDICATION: f/u VANESA. COMPARISON: CR XR PELVIS AP from 10/17/2019 XR HIP LT IN OR from 11/20/2019 TECHNIQUE: 2D digital imaging was performed. FINDINGS: There has been no change in the alignment of the left hip prosthesis. No abnormal bony lucencies are seen. The right hip prosthesis is unremarkable. DATA REPOSITORY: RADIATION DOSE DELIVERED:
== END 2019-12-09 15:58 ==
PROVIDERS: PCP Nurse Practitioner Family; Visit Provider Student in an Organized Health Care Education/Training Program
DX: M16.12 Unilateral primary osteoarthritis, left hip (principal); Z96.642 Presence of left artificial hip joint; Z47.1 Aftercare following joint replacement surgery; I10 Essential (primary) hypertension
CPT/HCPCS: 73502

== ENCOUNTER → 2020-01-06 10:16 | Outpatient (BNVA) | payer MEDICARE, MEDICAID, SELFPAY | PROVIDERS: PCP Nurse Practitioner Family; Referring Provider Nurse Practitioner Family; Visit Provider Student in an Organized Health Care Education/Training Program | DX: Z47.1 Aftercare following joint replacement surgery (principal); Z96.642 Presence of left artificial hip joint ==

== ENCOUNTER → 2020-02-17 10:00 | Outpatient (BNVA) | payer MEDICARE, MEDICAID, SELFPAY | PROVIDERS: PCP Nurse Practitioner Family; Referring Provider Nurse Practitioner Family; Visit Provider Student in an Organized Health Care Education/Training Program | DX: Z47.1 Aftercare following joint replacement surgery (principal); Z96.642 Presence of left artificial hip joint; I10 Essential (primary) hypertension; E11.9 Type 2 diabetes mellitus without complications ==

== ENCOUNTER 2020-10-06 01:24 | Outpatient (CLI) | payer MEDICARE, MEDICAID, SELFPAY ==
--- NOTE | 2020-10-06 | DI.US_ITS ---
Exam(s) US BREAST LT LIMITED MG MAMMO SCREENING 60 MIN DUR EXAM: MG MAMMO SCREENING 60 MIN DUR and ultrasound breast LT limited CLINICAL HISTORY: screening,z12.39, PERSONAL H/O BREAST CA. TECHNIQUE: Craniocaudal and mediolateral oblique Full Field Digital Mammography views with Computer Aided Diagnosis followed by Tomosynthesis and left breast ultrasound. COMPARISON: Comparison with prior examinations. FINDINGS: Mammography/Tomosynthesis: Masses/Architectural Distortion: There is a new ovoid density in the upper-outer quadrant of the left breast. The patient is status post left lumpectomy. Microcalcifictions: No suspicious pleomorphic-type are seen. Skin Thickening/Nipple Retraction: None. Left breast US: Echotexture: Normal appearance of the glandular tissue. Shadowing: No suspicious foci. Cyst: None. Solid lesions: There is a radially oriented hypoechoic mass at the 2 o'clock position of the left ysabel ast 4 cm from the nipple which corresponds to the mammographic abnormality. The mass measures 1.2 x 0.6 x 0.7 cm. There are irregular borders to the mass. The mass does not appear to be completely cy stic. Ductal dilation: None. IMPRESSION: 1. New complex 1.2 cm mass at the 2 o'clock position of the left breast 4 cm from the nipple. 2. Biopsy is recommended for further evaluation. 3. The findings were discussed with the patient and Taina Mckeon NP on the date of the examination . BI-RADS Category 4 - Suspicious Abnormality: Biopsy should be considered Breast Density - Category B - Scattered areas of fibroglandular density Breast density Category C or D implies that the patient has dense breast tissue. Dense breast tissue can make it harder to find cancer on a mammogram. Dense breast tissue is also associated with an incr eased risk of breast cancer. This information about the result of the mammogram report was provided to the patient to raise their awareness. Use this report when you speak with the patient about their risks for breast cancer, which includes their family history. At that time, you may recommend additional screening tests (Ultrasoun d or MRI) as these tests may add significant information. A negative radiographic report should not delay biopsy if a dominant or clinically suspicious mass is present. Up to ten percent of cancers are not identified on mammography. A negative report may reinforce clinical impression. Adenosis and dense breasts may obscure an underlying neoplasm. False positive reports average 6 to 10%. Patient will receive a letter notifying them of these results.
== END 2020-10-06 01:44 ==
PROVIDERS: PCP Nurse Practitioner Family; Visit Provider Nurse Practitioner Family
DX: Z12.31 Encounter for screening mammogram for malignant neoplasm of breast (principal); R92.8 Other abnormal and inconclusive findings on diagnostic imaging of breast; Z85.3 Personal history of malignant neoplasm of breast; N63.21 Unspecified lump in the left breast, upper outer quadrant
CPT/HCPCS: 76642; 77063; 77067

== ENCOUNTER 2020-11-05 02:59 | Outpatient (CLI) | payer MEDICARE, MEDICAID, SELFPAY ==
[2020-11-05 12:24] LABS: Hemoglobin A1C 7.3 % (<5.7)
[2020-11-05 12:26] LABS: Calculated LDL 146 mg/dL (<100); Cholesterol 216 mg/dL (<200); HDL Cholesterol 45 mg/dL (40-60); Triglyceride 126 mg/dL (<150)
== END 2020-11-05 03:00 | disposition home or self-care (01) ==
LOC: LOS 02:59
PROVIDERS: PCP Nurse Practitioner Family; Visit Provider Nurse Practitioner Family
DX: R73.03 Prediabetes (principal); E78.5 Hyperlipidemia, unspecified
CPT/HCPCS: 36415; 80061; 83036

== ENCOUNTER 2020-12-17 10:27 | Outpatient (CLI) | payer MEDICARE, MEDICAID, SELFPAY ==
--- NOTE | 2020-12-17 10:15 | DI.RAD_ITS ---
Exam(s) XR HIP LT AP LAT ONLY EXAM: XR HIP LT AP LAT ONLY CLINICAL HISTORY: ANNUAL F/U L VANESA. TECHNIQUE: 2D digital imaging was performed. COMPARISON: CR XR HIP LT COMPLETE AP PELVIS from 12/09/2019 FINDINGS: There is continued stable appearance of the left hip prosthesis. No fracture or loosening evident. No radiographic change when compared to December 2019. IMPRESSION: DATA REPOSITORY: RADIATION DOSE DELIVERED:
== END 2020-12-17 10:28 | disposition home or self-care (01) ==
LOC: DIORS 10:27
PROVIDERS: PCP Nurse Practitioner Family; Referring Provider Nurse Practitioner Family; Visit Provider Student in an Organized Health Care Education/Training Program
DX: Z96.642 Presence of left artificial hip joint (principal); Z47.1 Aftercare following joint replacement surgery
CPT/HCPCS: 99213; 73502

== ENCOUNTER 2021-02-15 03:57 | Outpatient (CLI) | payer MEDICARE, MEDICAID, SELFPAY ==
[2021-02-15 13:32] LABS: Vitamin D 25 Total 42.8 ng/mL (30-100)
== END 2021-02-15 03:58 | disposition home or self-care (01) ==
PROVIDERS: PCP Nurse Practitioner Family; Visit Provider Nurse Practitioner Family
DX: E55.9 Vitamin D deficiency, unspecified (principal)
CPT/HCPCS: 36415; 82306

== ENCOUNTER 2021-11-10 03:57 | Outpatient (CLI) | payer MEDICARE, MEDICAID, SELFPAY ==
[2021-11-10 11:34] LABS: Anion Gap 7.2 mmol/L (3-11); BUN 17 mg/dL (7-18); CO2 29.8 mmol/L (21.0-32.0); CREATININE 0.8 mg/dL (0.55-1.02); Calcium 9.4 mg/dL (8.5-10.1); Chloride 101 mmol/L (98-107); Glucose 129 mg/dL (74-106); Sodium 138 mmol/L (136-145)
[2021-11-10 14:19] LABS: Calculated LDL 143 mg/dL (<100); Cholesterol 227 mg/dL (<200); HDL Cholesterol 49 mg/dL (40-60); Triglyceride 176 mg/dL (<150)
== END 2021-11-10 03:58 | disposition home or self-care (01) ==
LOC: LBO 03:57
PROVIDERS: PCP Nurse Practitioner Family; Visit Provider Nurse Practitioner
DX: E11.9 Type 2 diabetes mellitus without complications (principal); I10 Essential (primary) hypertension
CPT/HCPCS: 36415; 80048; 80061

== ENCOUNTER → 2022-05-12 01:02 | Outpatient (CLI) | payer MEDICARE, MEDICAID, SELFPAY ==
--- NOTE | 2022-05-12 07:30 | DI.DEXA_ITS ---
Exam(s) XR DEXA BONE DENSITY W/WO MARIA DE JESUS EXAM: XR DEXA BONE DENSITY W/WO MARIA DE JESUS CLINICAL HISTORY: SCREENING FOR OSTEOPOROSIS IN POSTMENOPAUSAL WOMAN,Z78.0, ON ANASTROZOLE TECHNIQUE: COMPARISON: Comparison is 01/10/2005. FINDINGS: Lateral Spine Image: Unremarkable. No compression deformities identified. Left forearm: Total T-Score: -2.8 Total Z-Score: 0.0 T- and Z-scores: Findings are consistent with osteoporosis. Lumbar Spine: Total T-Score: -0.4. This compares to -0.2 on the prior examination. Total Z-Score: 2.1 T- and Z-scores: Within normal limits. IMPRESSION: Findings of osteoporosis in the left forearm.
== END ==
PROVIDERS: PCP Nurse Practitioner Family; Visit Provider Nurse Practitioner Family
DX: Z78.0 Asymptomatic menopausal state (principal); Z13.820 Encounter for screening for osteoporosis; M81.0 Age-related osteoporosis without current pathological fracture
CPT/HCPCS: 77080

== ENCOUNTER 2023-01-02 02:47 | Outpatient (CLI) | payer MEDICARE, MEDICAID, SELFPAY ==
[2023-01-02 12:55] LABS: Anion Gap 9.1 mmol/L (3-11); BUN 13 mg/dL (7-18); CO2 27.9 mmol/L (21.0-32.0); CREATININE 0.7 mg/dL (0.55-1.02); Calcium 9.2 mg/dL (8.5-10.1); Chloride 102 mmol/L (98-107); Estimated GFR 88.47 (mL/min/1.73m2); Glucose 159 mg/dL (74-106); Potassium 3.9 mmol/L (3.5-5.1); Sodium 139 mmol/L (136-145)
== END 2023-01-02 02:48 | disposition home or self-care (01) ==
LOC: LOS 02:47
PROVIDERS: PCP Nurse Practitioner Family; Visit Provider Nurse Practitioner Family
DX: I10 Essential (primary) hypertension (principal); E11.319 Type 2 diabetes mellitus with unspecified diabetic retinopathy without macular edema
CPT/HCPCS: 36415; 80048

== ENCOUNTER 2023-03-19 14:35 | Emergency (ER) | payer MEDICARE, MEDICAID, SELFPAY ==
[2023-03-19 14:43] VITALS: BP 182/80; PULSE 85; RESP 20; TEMP 36.8; O2SAT 98
--- NOTE | 2023-03-19 14:58 | ED.GENADUL_ITS ---
Discharge Plan Discharge Details Chief Complaint: AnimalBite Primary Care Provider: Debbie Angulo ED Provider: Johanna Farris Home Meds and New Rx's Prescriptions: No Action cholecalciferol (vitamin D3) 50 mcg (2,000 unit) capsule 50 mcg PO DAILY ascorbic acid (vitamin C) 500 mg tablet,chewable 500 mg PO DAILY multivitamin Tablet 1 tab PO DAILY digestive enzymes Tablet 1 tab PO DAILY Histamine Block PO Adult Probiotic 3 billion cell capsule 3,000 mmu cells PO DAILY Rx Instructions: administer with a meal melatonin 1 mg tablet 1.5 mg PO HS PRN betamethasone, augmented 0.05 % cream 1 applic TP DAILY PRN (Reason: skin irritation) Qty: 50 2RF Rx Instructions: apply a pea-sized amount to the affected area as directed (DME) lancets [OneTouch UltraSoft Lancets] 1 EACH misc 1 ea Miscellaneous DAILY Qty: 100 Rx Instructions: DX: 250.00 (DME) OneTouch Ultra Blue Test Strip Strip 1 ea Miscellaneous DAILY Qty: 100 4RF Rx Instructions: Check blood sugar once a day and as needed amlodipine 2.5 mg tablet 7.5 mg PO DAILY Qty: 270 3RF Rx Instructions: Take 3 tablets daily (prefers 2.5mg tablet due to swallowing) metformin 500 mg tablet 500 mg PO BID Qty: 180 3RF Rx Instructions: Take 1 tablet twice a day Medical Decision Making Patient is a pleasant RHD female, brought in by daughter, with c/c of dog bite to right hand. States that it is her daughter's dog, had come into the home after knocking and he attacked her, biting the right hand. Needs TDap updated. Denies other injury at the time of the incident. Daughter reports that dog us UTD on vaccines, including rabies. She denies numbness/tingling. Has not taken anything for pain yet. On exam, patietn appears uncomfortable and anxious. Small amount of bleeding from right hand. She has puncture wounds over the MCP joint right thumb. She does have some defomrity to the right thumb but this appears chronic and associated with OA, similar to the contralateral side. 2+ distal pulses. Sensation intact distal to the wound. Good ROM of the thumb. Ecchymosis and swelling over the proximal righ thumb and thenar emminance. 2cm laceration curvilinear right thenar emminance. Will begin Augmentin for infection. Will also obtain XR to evaluate for fx or retained FB. Will give APAP and NSAID for pain. Ketoralac on allergy list but she states she has never actually had a reaction to this. We disussed tat the curvilinear laceration will likely need some loose closure. At the end of my shift, care transitioned to Pito Fowler NP, with imaging and clsoure pending. HPI General Date/Time Provider Initiated Documentation: 03/19/23 14:46 . Limitations to Documentation: no limitations . Information obtained by: patient, family (daughter) and RN notes reviewed . H istory of Present Illness 77 year old F presents to the emergency department with the chief complaint of dog bite right hand, described as moderate, with intensity rated at 6. Quality is described as stabbing and aching, and is localized to the right and upper extremity. Patient reports no radiation. Patient started experiencing this minute(s) and it has been constant. Immobilization improves symptom(s), Movement worsens symptoms . Patient notes no other symptoms.. Patient did receive the following treatments prior to arrival, none Related Data Home Medications Medication Instructions Recorded Confirmed lancets (OneTouch UltraSoft #100 ea 05/03/14 02/20/23 Lancets) cholecalciferol (vitamin D3) 50 50 mcg PO DAILY 02/14/20 02/20/23 mcg (2,000 unit) capsule Histamine Block PO 10/30/20 02/20/23 ascorbic acid (vitamin C) 500 mg 500 mg PO DAILY 10/30/20 02/20/23 chewable tablet digestive enzymes 1 tab PO DAILY 10/30/20 02/20/23 lactobacillus combination no.8 3 3,000 mmu cells PO DAILY 10/30/20 02/20/23 billion cell capsule (Adult Probiotic) melatonin 1 mg tablet 1.5 mg PO HS PRN 10/30/20 02/20/23 multivitamin 1 tab PO DAILY 10/30/20 02/20/23 betamethasone, augmented 0.05 % 1 applic topical DAILY PRN skin 11/09/20 02/20/23 topical cream irritation #50 grams blood sugar diagnostic #100 ea 11/08/21 02/20/23 amlodipine 2.5 mg tablet 7.5 mg (3 x 2.5 mg) PO DAILY #270 08/10/22 02/20/23 tabs metformin 500 mg tablet 500 mg PO BID #180 tabs 02/22/23 Previous Rx's Medication Instructions Recorded betamethasone, augmented 0.05 % 1 applic topical DAILY PRN skin 11/09/20 topical cream irritation #50 grams blood sugar diagnostic #100 ea 11/08/21 amlodipine 2.5 mg tablet 7.5 mg (3 x 2.5 mg) PO DAILY #270 08/10/22 tabs metformin 500 mg tablet 500 mg PO BID #180 tabs 02/22/23 Allergies Allergy/AdvReac Type Severity Reaction Status Date / Time lisinopril AdvReac Intermediate Cough Verified 02/20/23 14:37 morphine AdvReac Mild nausea Verified 02/20/23 14:37 oxycodone [From Percocet] AdvReac Mild Nausea Verified 02/20/23 14:37 sulfamethoxazole AdvReac Mild nausea Verified 02/20/23 14:37 [From Bactrim] trimethoprim [From Bactrim] AdvReac Mild nausea Verified 02/20/23 14:37 chlorthalidone AdvReac Unknown Verified 02/20/23 14:37 ketorolac [From Toradol] AdvReac Unknown Verified 02/20/23 14:37 losartan AdvReac Unknown Pt reports Verified 02/20/23 14:37 redness and pain to feet -BR nifedipine AdvReac Unknown Verified 02/20/23 14:37 clindamycin AdvReac nausea/acid Verified 02/20/23 14:37 stomach Quinazolinones AdvReac Verified 02/20/23 14:37 General Stated Complaint: AnimalBite JENNIFER: 4 Review of Systems Constitutional Constitutional: Reports as per HPI, Denies chills and Denies fever(s) Musculoskeletal Musculoskeletal: Reports as per HPI Integumentary/Breasts Skin/Breast: Reports as per HPI Neurologic Neurologic: Reports as per HPI, Denies sensory deficit and Denies paresthesias PFSH All Active Problems (Updated 11/07/22 @ 13:24 by Debbie Angulo NP) 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) Essential hypertension (Chronic) Hyperlipemia (Chronic) Declines statins Osteoporosis (Chronic) Dexa 2021, declines medications Medical History (Updated 11/07/22 @ 13:24 by Debbie Angulo NP) Urinary incontinence 2021- resolved after PT Kegals Migraine headache Intraductal carcinoma of left breast (~03/1996) S/p lumpectomy and radiation Depression Surgical History (Updated 02/11/21 @ 15:48 by Debbie Angulo NP) 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) Status post partial mastectomy of left breast (11/13/20) Status post total hip replacement, 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) S/P excision of ganglion cyst (11/12/18) Excision of two ganglion cysts, dorsum of the right ring finge S/P cubital tunnel release (01/24/06) Left arm S/P colonoscopy S/P breast lumpectomy (~04/1996) History of bilateral oophorectomy (~1983) Status post abdominal hysterectomy S/P tonsillectomy Status post total knee replacement, 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) Hx of bursectomy (01/13/10) Left trochanteric bursa Status post total knee replacement, left (12/01/03) Status post total hip replacement, right (07/28/03) Family History (Updated 11/04/21 @ 13:00 by Rhonda Ponce) Mother , at 82 Essential hypertension Depression Hyperlipidemia Breast cancer In her 70s Father , at 50 of [place] Essential hypertension Heart disease Myocardial infarction Sister Hyperlipidemia Sister Essential hypertension Type 2 diabetes mellitus Heart disease Hyperlipidemia Diabetes Brother Essential hypertension Heart disease Brother Essential hypertension Depression Myocardial infarction X 2 Type 2 diabetes mellitus Brother No problems noted. Son No problems noted. Son Essential hypertension Depression Hyperlipidemia Son Depression Daughter No problems noted. Maternal Grandfather , at 45 of [place] Heart disease Myocardial infarction Maternal Grandmother , at 70 Heart disease Paternal Grandfather , at 40 of [place] Heart disease Myocardial infarction Paternal Grandmother , at 65 Heart disease Myocardial infarction Social History (Updated 11/04/21 @ 12:58 by Rhonda Ponce) Smoking/Tobacco Use Status: Never Second Hand Exposure: No Smoking risk assessment performed?: Yes Alcohol Intake: never Drug use: Never Substance use type: does not use Counseling given: No Counseling provided: none Caregiver/Support person: No Household members: none Housing: apartment Communication Needs: None Do you need help understanding health information?: Rarely Pets and animals: No Sexually active: No Do you think of yourself as: straight/heterosexual Current gender identity: female What is your relationship status?: How often do you talk on the phone with friends or family?: three or more times per week How often do you get together with friends or relatives?: once per week How often do you attend mosque or latter day services?: 4 or more times per year Do you belong to any clubs or organized social groups?: no Panel score (0-1 are the most socially isolated patients): 2 What type of physical activity do you participate in: aerobic, bicycling, weight lifting and other Details: Marching in place streching Duration: < 15 minutes/day Frequency: 1-2 times per week Katie/Orthodoxy: Congregation Special katie needs: No Seatbelt use: always Helmet use: No Drive intox 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 Do you feel safe at home: Yes Do you feel safe in your relationship?: Yes History History 2 5 Para Hx # Term Pregnancies Multiple births Hx # Pregnancies Ectopic pregnancies AB induced Hx Number of Living Children 4 AB spontaneous 1 Exam Const General: cooperative, healthy appearing, comfortable, no acute distress and well developed Nutritional Appearance: average body habitus and well nourished Orientation: alert and awake Resp Effort & Inspection: normal respiratory effort, able to speak in complete sentences and no respiratory distress Cardio Rate: regular rate Rhythm: regular rhythm Skin Trauma: laceration and puncture Neuro General: patient alert and patient awake Cognition: normal cognition Speech: speech normal Gait: normal gait Sensory Exam: no sensory deficits noted Extrem Hand/finger images: 2 1. Curvilinear laceration, small amount of active bleeding. Puncture wounds over the MCP joint to right thumb. Full ROM, 2+ distla pulses, intact capillary refill. Swelling and ecchymosis over the MCP and thenar eminence. Intact sensation in thumb and other digits. No wounds on dorsal side of the hand. Psych Appearance: grossly normal and well kempt Mental Status: mental status grossly normal Speech and Movement: speech and movement normal Course Vital Signs Vital signs: Vital Signs Temperature 36.8 C 03/19/23 14:43 Pulse 85 03/19/23 14:43 Respiratory Rate 20 03/19/23 14:43 Blood Pressure 182/80 H 03/19/23 14:43 Pulse Oximetry 98 03/19/23 14:43 Temperature 36.8 C 03/19/23 14:43 Temperature Source Oral 03/19/23 14:43 Pulse 85 03/19/23 14:43 Respiratory Rate 20 03/19/23 14:43 Blood Pressure 182/80 H 03/19/23 14:43 Blood Pressure Position Sitting 03/19/23 14:43 Pulse Oximetry 98 03/19/23 14:43 Oxygen Delivery Method Room Air 03/19/23 14:43 Oxygen Flow Rate 0 03/19/23 14:43 Pain Level 6 03/19/23 14:43 Sign Out Sign Out Data: Sign Out Comment: Dog bite to right hand transitioned to Pito Fowler NP, with imaging and wound care pending. Last updated by Johanna Farris PA at 03/19/23 15:37
[2023-03-19] MEDS: Acetaminophen 325 MG TAB 650 MG PO (15:14)
[2023-03-19] MEDS: Ibuprofen 600 MG TAB PO (15:15)
[2023-03-19] MEDS: Amox. 875/Clav. 125, 2 TABS/BTL 1 TAB PO (15:27)
--- NOTE | 2023-03-19 16:06 | DI.RAD_ITS ---
Exam(s) XR HAND RT COMPLETE EXAM: XR HAND RT COMPLETE CLINICAL HISTORY: dog bite. TECHNIQUE: 2D digital imaging was performed. Three views. COMPARISON: CR RIGHT INDEX FINGER from 07/12/2011 FINDINGS: BONES: No acute fracture is present. No bony destructive lesion is seen. JOINTS: No dislocation present. Severe degenerative changes at the interphalangeal joints and 1st car pal metacarpal joint. SOFT TISSUE: soft tissue swelling around 1st MCP joint. IMPRESSION: No evidence of fracture. DATA REPOSITORY: RADIATION DOSE DELIVERED:
--- NOTE | 2023-03-19 16:07 | ED.PROG_ITS ---
Date of service: 03/19/23 Time of Service: 16:00 Medical Decision Making 1600 Patient signed out to me by TYALER Sage. Patient signed out pending review of radiological imaging and consideration of wound closure with dog bite. Patient already given tetanus and Augmentin. Reviewed radiological imaging along with radiologist interpretation that shows no acute findings but there is noted pretty significant degenerative disease. Please see suture repair for wound closure. 1 cm superficial wound to the more distal aspect of the thumb compared to the other ones was closed with simple Steri-Strips. All wounds were copiously irrigated and cleansed prior to loose approximation. Patient wounds were only loosely approximated due to this being an animal bite. Patient started on Augmentin and states that she already has a primary care visit on Monday which I feel is appropriate for wound recheck. Otherwise discussed with patient acute wound care. After discussion of diagnosis and plan of care patient has no further needs, questions, or concerns and states clear understanding to return to the emergency department for any worsening symptoms. This documentation was generated using [employer] dictation system, please disregard any oddities of phrase or misspellings. Imaging Data Radiologic Study: Imaging: X-Ray Radiologist's impression: Exam(s) PROCEDURE INFORMATION: Exam: XR Right Hand Exam date and time: 03/19/2023 4:01 PM Age: 77 years old Clinical indication: Other: Dog bite TECHNIQUE: Imaging protocol: Radiologic exam of the right hand. Views: 3 or more views. COMPARISON: No relevant prior studies available. FINDINGS: Bones/joints: No fracture. No lytic lesions or erosions. Bulky osteophytes and joint space narrowing at the 1st carpometacarpal joint. Osteophytes at all the interphalangeal joints. Medial deviation of the 2nd finger of the distal interphalangeal joint. Medial deviation of the 3rd finger at the proximal interphalangeal joint. Soft tissues: No radiopaque foreign bodies. IMPRESSION: 1. No fracture. 2. Osteoarthritis Procedures Laceration Laceration 1: Site: hand Side (If applicable): right Size (cm): 3 Description: linear Depth: simple, single layer Local Anesthetic: Lidocaine 1% Amount of anesthesia used (mL): 5 Pre-repair: wound explored, irrigated extensively and deep structures inta ct Skin layer closed with: other (prolene) Size (cm): 3-0 Number of sutures: 2 Technique: simple, interrupted Laceration 2: Side (If applicable): right Size (cm): 2.2 Description: linear Depth: simple, single layer Local Anesthetic: Lidocaine 1% Amount of anesthesia used (mL): 2 Pre-repair: wound explored, irrigated extensively and deep structures intact Skin layer closed with: other (prolene) Size (cm): 3-0 Number of sutures: 2 Technique: simple, interrupted Sign Out Sign Out Data: Sign Out Comment: Dog bite to right hand transitioned to Pito Fowler NP, with imaging and wound care pending. Last updated by Johanna Farris PA at 03/19/23 15:37 Discharge Plan Disposition Patient Disposition: Home Discharge Details Clinical Impression: Dog bite of right hand Primary Care Provider: Debbie Angulo ED Provider: Maximo Fowler Home Meds and New Rx's Prescriptions: New amoxicillin-pot clavulanate 875-125 mg tablet 1 tab PO Q12H 4 Days Qty: 8 0RF Continued cholecalciferol (vitamin D3) 50 mcg (2,000 unit) capsule 50 mcg PO DAILY ascorbic acid (vitamin C) 500 mg tablet,chewable 500 mg PO DAILY multivitamin Tablet 1 tab PO DAILY digestive enzymes Tablet 1 tab PO DAILY Histamine Block PO Adult Probiotic 3 billion cell capsule 3,000 mmu cells PO DAILY Rx Instructions: administer with a meal melatonin 1 mg tablet 1.5 mg PO HS PRN betamethasone, augmented 0.05 % cream 1 applic TP DAILY PRN (Reason: skin irritation) Qty: 50 2RF Rx Instructions: apply a pea-sized amount to the affected area as directed (DME) lancets [OneTouch UltraSoft Lancets] 1 EACH misc 1 ea Miscellaneous DAILY Qty: 100 Rx Instructions: DX: 250.00 (DME) blood sugar diagnostic Strip 1 ea Miscellaneous DAILY Qty: 100 4RF Rx Instructions: Check blood sugar once a day and as needed amlodipine 2.5 mg tablet 7.5 mg PO DAILY Qty: 270 3RF Rx Instructions: Take 3 tablets daily (prefers 2.5mg tablet due to swallowing) metformin 500 mg tablet 500 mg PO BID Qty: 180 3RF Rx Instructions: Take 1 tablet twice a day Discharge Instructions Instructions: Animal Bite (ED) Additional Instructions: Watch for any signs of infection and return immediately to the emergency department if these occur. Otherwise keep dressing in place for the next 24-48 hours and then keep wound clean and dry. Return to the emergency department 12 days for suture removal. Please follow-up with your primary care provider in 3 days for wound check Referrals: Debbie Angulo NP [Primary Care Provider] - 3 days Discharge Data Discharge Date/Time-TO BE ENTERED AT DEPARTURE: 03/19/23 17:24
--- NOTE | 2023-03-19 16:10 | DI.VRAD_ITS ---
PROCEDURE INFORMATION: Exam: XR Right Hand Exam date and time: 03/19/2023 4:01 PM Age: 77 years old Clinical indication: Other: Dog bite TECHNIQUE: Imaging protocol: Radiologic exam of the right hand. Views: 3 or more views. COMPARISON: No relevant prior studies available. FINDINGS: Bones/joints: No fracture. No lytic lesions or erosions. Bulky osteophytes and joint space narrowing at the 1st carpometacarpal joint. Osteophytes at all the interphalangeal joints. Medial deviation of the 2nd finger of the distal interphalangeal joint. Medial deviation of the 3rd finger at the proximal interphalangeal joint. Soft tissues: No radiopaque foreign bodies. IMPRESSION: 1. No fracture. 2. Osteoarthritis Dictated and Authenticated by: Juno Bills MD. Ordering:ZINA Spencer MD
[2023-03-19] MEDS: Lidocaine 1% Multi-Dose 50 ML VIAL (16:42)
== END 2023-03-19 17:24 | disposition home or self-care (01) ==
PROVIDERS: Emergency Provider Nurse Practitioner Family; PCP Nurse Practitioner Family
DX: S61.451A Open bite of right hand, initial encounter (principal); W54.0XXA Bitten by dog, initial encounter; E11.319 Type 2 diabetes mellitus with unspecified diabetic retinopathy without macular edema; I10 Essential (primary) hypertension; E78.5 Hyperlipidemia, unspecified
CPT/HCPCS: 12002; 90471; 99284; 73130

== ENCOUNTER 2023-03-30 10:10 | Emergency (ER) | payer MEDICARE, MEDICAID, SELFPAY ==
--- NOTE | 2023-03-30 10:11 | ED.GENADUL_ITS ---
Discharge Plan Disposition Patient Disposition: Home Discharge Details Clinical Impression: Encounter for removal of sutures Primary Care Provider: Debbie Angulo ED Provider: Jose Ma Home Meds and New Rx's Prescriptions: Continued cholecalciferol (vitamin D3) 50 mcg (2,000 unit) capsule 50 mcg PO DAILY ascorbic acid (vitamin C) 500 mg tablet,chewable 500 mg PO DAILY multivitamin Tablet 1 tab PO DAILY digestive enzymes Tablet 1 tab PO DAILY Histamine Block PO Adult Probiotic 3 billion cell capsule 3,000 mmu cells PO DAILY Rx Instructions: administer with a meal melatonin 1 mg tablet 1.5 mg PO HS PRN betamethasone, augmented 0.05 % cream 1 applic TP DAILY PRN (Reason: skin irritation) Qty: 50 2RF Rx Instructions: apply a pea-sized amount to the affected area as directed (DME) lancets [OneTouch UltraSoft Lancets] 1 EACH misc 1 ea Miscellaneous DAILY Qty: 100 Rx Instructions: DX: 250.00 (DME) blood sugar diagnostic Strip 1 ea Miscellaneous DAILY Qty: 100 4RF Rx Instructions: Check blood sugar once a day and as needed amlodipine 2.5 mg tablet 7.5 mg PO DAILY Qty: 270 3RF Rx Instructions: Take 3 tablets daily (prefers 2.5mg tablet due to swallowing) metformin 500 mg tablet 500 mg PO BID Qty: 180 3RF Rx Instructions: Take 1 tablet twice a day Discharge Instructions Additional Instructions: You are seen in the emergency department for your 4 sutures which were removed. As we discussed, if you develop worsening pain worsening swelling any fevers or any foul-smelling drainage please return to the emergency department. Please otherwise elevate your hand to help the swelling go down. For your pain please take medications as follows: 1. Take acetaminophen (Tylenol), 1,000 mg (two 500 mg tabs) every 6 hours Discharge Data Discharge Date/Time-TO BE ENTERED AT DEPARTURE: 03/30/23 10:32 HPI General Date/Time Provider Initiated Documentation: 03/30/23 10:11 . HPI Narrative: [facility] This is a very well-appearing normothermic and not tachycardic right-hand- dominant 77-year-old female 11 days status post dog bite with 4 stitches that will be removed by nursing. Patient does have moderate persistent swelling which she reports is markedly improved. She has no limitations in range of motion in her thumb so I am not concerned for deep space infection. No pain out of proportion to suggest necrotizing soft tissue infection. No foul-smelling drainage no systemic symptoms of fevers nor chills so my suspicion for deep space infection is low. She is a diabetic and based on her age I advised her that I was not certain as to whether or not she would not go on to develop a deeper space infection. Given her improving symptoms I did not feel that additional antibiotics were warranted at this early junction. I did hiv counselor the patient that if she developed worsening pain worsening swelling erythema or any fevers that she should return immediately to the emergency department. Otherwise we will proceed with empiric trial of expectant outpatient management. Chronic conditions affecting the care of the patient: N/A History obtained from an outside historian: N/A [place] [facility] [place]ations: N/A Social determinants of health affecting disposition: N/A Management discussed with: N/A Treatment/interventions considered: N/A Response to therapies provided: N/A HPI This is a [id number]-[id number] 77-year-old female 11 days status post right hand dog bite with 2 lacerations which were closed loosely with a total of 4 sutures for which she is in the emergency department to have her removed. She reports that she has finished outpatient antibiotics. She said no fevers. She reports improved swelling in her right hand. She said no pus no foul-smelling drainage. She has had no limitations in range of motion in her hand. She has no concerns. She feels that her wound is healing well. No nausea vomiting chest pain or shortness of breath. Exam General: Well-appearing in no acute distress speaking in complete sentences. Head: Normocephalic, atraumatic. Eye: [Pupils equal, round reactive to light.] Extraocular eye movements intact. No conjunctival injection. No scleral icterus. Ear, nose, mouth, throat: Grossly normal inspection. Normal voice, handling secretions normally. Neck: Trachea midline. Cardiovascular: Well-perfused distal extremities. Respiratory: Nonlabored respiration. Gastrointestinal: Nondistended abdomen. Musculoskeletal: Patient's right thumb and thenar eminence is slightly swollen. No pain out of proportion. Full range of motion right thumb. No purulent drainage. No erythema. Patient has no tenderness on palpation of her 2 lacerations closed with a total of 4 sutures. Please see nursing note concerning sutures that were removed in triage. Skin: Normal for age and race, grossly normal temperature and turgor. No acute rash. Neurologic: Alert and appropriate, no apparent acute deficits. Psychiatric: Mood and manner are appropriate. Grooming and personal hygiene are appropriate. Related Data Home Medications Medication Instructions Recorded Confirmed lancets (OneTouch UltraSoft #100 ea 05/03/14 03/22/23 Lancets) cholecalciferol (vitamin D3) 50 50 mcg PO DAILY 02/14/20 03/22/23 mcg (2,000 unit) capsule Histamine Block PO 10/30/20 03/22/23 ascorbic acid (vitamin C) 500 mg 500 mg PO DAILY 10/30/20 03/22/23 chewable tablet digestive enzymes 1 tab PO DAILY 10/30/20 03/22/23 lactobacillus combination no.8 3 3,000 mmu cells PO DAILY 10/30/20 03/22/23 billion cell capsule (Adult Probiotic) melatonin 1 mg tablet 1.5 mg PO HS PRN 10/30/20 03/22/23 multivitamin 1 tab PO DAILY 10/30/20 03/22/23 betamethasone, augmented 0.05 % 1 applic topical DAILY PRN skin 11/09/20 03/22/23 topical cream irritation #50 grams blood sugar diagnostic #100 ea 11/08/21 03/22/23 amlodipine 2.5 mg tablet 7.5 mg (3 x 2.5 mg) PO DAILY #270 08/10/22 03/22/23 tabs metformin 500 mg tablet 500 mg PO BID #180 tabs 02/22/23 03/22/23 Previous Rx's Medication Instructions Recorded betamethasone, augmented 0.05 % 1 applic topical DAILY PRN skin 11/09/20 topical cream irritation #50 grams blood sugar diagnostic #100 ea 11/08/21 amlodipine 2.5 mg tablet 7.5 mg (3 x 2.5 mg) PO DAILY #270 08/10/22 tabs metformin 500 mg tablet 500 mg PO BID #180 tabs 02/22/23 Allergies Allergy/AdvReac Type Severity Reaction Status Date / Time lisinopril AdvReac Intermediate Cough Verified 03/22/23 14:22 morphine AdvReac Mild nausea Verified 03/22/23 14:22 oxycodone [From Percocet] AdvReac Mild Nausea Verified 03/22/23 14:22 sulfamethoxazole AdvReac Mild nausea Verified 03/22/23 14:22 [From Bactrim] trimethoprim [From Bactrim] AdvReac Mild nausea Verified 03/22/23 14:22 chlorthalidone AdvReac Unknown Verified 03/22/23 14:22 ketorolac [From Toradol] AdvReac Unknown Verified 03/22/23 14:22 losartan AdvReac Unknown Pt reports Verified 03/22/23 14:22 redness and pain to feet -BR nifedipine AdvReac Unknown Verified 03/22/23 14:22 clindamycin AdvReac nausea/acid Verified 03/22/23 14:22 stomach Quinazolinones AdvReac Verified 03/22/23 14:22 General JENNIFER: 4 PFSH All Active Problems (Updated 03/30/23 @ 10:20 by Jose Ma MD) Encounter for removal of sutures (Acute) Dog bite of right hand (Acute) 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) Essential hypertension (Chronic) Hyperlipemia (Chronic) Declines statins Osteoporosis (Chronic) Dexa 2021, declines medications Medical History (Updated 03/30/23 @ 10:20 by Jose Ma MD) Urinary incontinence 2021- resolved after PT Kegals Migraine headache Intraductal carcinoma of left breast (~03/1996) S/p lumpectomy and radiation Depression Surgical History (Updated 02/11/21 @ 15:48 by Debbie Angulo NP) 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) Status post partial mastectomy of left breast (11/13/20) Status post total hip replacement, 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) S/P excision of ganglion cyst (11/12/18) Excision of two ganglion cysts, dorsum of the right ring finge S/P cubital tunnel release (01/24/06) Left arm S/P colonoscopy S/P breast lumpectomy (~04/1996) History of bilateral oophorectomy (~1983) Status post abdominal hysterectomy S/P tonsillectomy Status post total knee replacement, 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) Hx of bursectomy (01/13/10) Left trochanteric bursa Status post total knee replacement, left (12/01/03) Status post total hip replacement, right (07/28/03) Family History (Updated 11/04/21 @ 13:00 by Rhonda Ponce) Mother , at 82 Essential hypertension Depression Hyperlipidemia Breast cancer In her 70s Father , at 50 of [place] Essential hypertension Heart disease Myocardial infarction Sister Hyperlipidemia Sister Essential hypertension Type 2 diabetes mellitus Heart disease Hyperlipidemia Diabetes Brother Essential hypertension Heart disease Brother Essential hypertension Depression Myocardial infarction X 2 Type 2 diabetes mellitus Brother No problems noted. Son No problems noted. Son Essential hypertension Depression Hyperlipidemia Son Depression Daughter No problems noted. Maternal Grandfather , at 45 of [place] Heart disease Myocardial infarction Maternal Grandmother , at 70 Heart disease Paternal Grandfather , at 40 of [place] Heart disease Myocardial infarction Paternal Grandmother , at 65 Heart disease Myocardial infarction Social History (Updated 11/04/21 @ 12:58 by Rhonda Ponce) Smoking/Tobacco Use Status: Never Second Hand Exposure: No Smoking risk assessment performed?: Yes Alcohol Intake: never Drug use: Never Substance use type: does not use Counseling given: No Counseling provided: none Caregiver/Support person: No Household members: none Housing: apartment Communication Needs: None Do you need help understanding health information?: Rarely Pets and animals: No Sexually active: No Do you think of yourself as: straight/heterosexual Current gender identity: female What is your relationship status?: How often do you talk on the phone with friends or family?: three or more times per week How often do you get together with friends or relatives?: once per week How often do you attend gnosticism or restoration services?: 4 or more times per year Do you belong to any clubs or organized social groups?: no Panel score (0-1 are the most socially isolated patients): 2 What type of physical activity do you participate in: aerobic, bicycling, weight lifting and other Details: Marching in place streching Duration: < 15 minutes/day Frequency: 1-2 times per week Katie/Moravian: Shinto Special katie needs: No Seatbelt use: always Helmet use: No Drive intox or ride w/intox concrete mixing truck driver: No Do you feel safe at home: Yes Do you feel safe in your relationship?: Yes History History 5 Para Hx # Term Pregnancies Multiple births Hx # Pregnancies Ectopic pregnancies AB induced Hx Number of Living Children 4 AB spontaneous 1
[2023-03-30 10:12] VITALS: BP 175/95; PULSE 88; RESP 16; TEMP 36.5; O2SAT 97
== END 2023-03-30 10:32 | disposition home or self-care (01) ==
LOC: ER 10:46
PROVIDERS: Emergency Provider Emergency Medicine; PCP Nurse Practitioner Family
DX: Z48.02 Encounter for removal of sutures (principal)

== ENCOUNTER 2024-04-26 01:43 | Outpatient (CLI) | payer MEDICARE, MEDICAID, SELFPAY ==
--- NOTE | 2024-04-26 12:54 | DI.MAMMO_ITS ---
Exam(s) MG MAMMO SCREENING 60 MIN DUR EXAM: MG MAMMO SCREENING 60 MIN DUR CLINICAL HISTORY: breast cancer screening,PERSONAL H/O BREAST CA,Z12.39. TECHNIQUE: Bilateral full field digital CC and MLO mammographic images were obtained with 3D tomosyn thesis and utilizing computer aided detection (CAD). COMPARISON: Prior outside mammograms were reviewed. There has been prior left lumpectomy. FINDINGS: Breast lumpectomy site remains stable. No new significant right breast findings. There are no new spiculated masses nor malignant appearing microcalcification groups. There is no significant architectural distortion nor skin thickening-retraction. IMPRESSION: No radiographic evidence of malignancy. BI-RADS Category 1 - Negative Breast Density - Category B - Scattered areas of fibroglandular density Breast density Category C or D implies that the patient has dense breast tissue. Dense breast tissue can make it harder to find cancer on a mammogram. Dense breast tissue is also associated with an incr eased risk of breast cancer. This information about the result of the mammogram report was provided to the patient to raise their awareness. Use this report when you speak with the patient about their risks for breast cancer, which includes their family history. At that time, you may recommend additional screening tests (Ultrasoun d or MRI) as these tests may add significant information. A negative radiographic report should not delay biopsy if a dominant or clinically suspicious mass is present. Up to ten percent of cancers are not identified on mammography. A negative report may reinforce clinical impression. Adenosis and dense breasts may obscure an underlying neoplasm. False positive reports average 6 to 10%. Patient will receive a letter notifying them of these results.
== END 2024-04-26 02:03 ==
LOC: DI 01:44
PROVIDERS: PCP Nurse Practitioner Family; Visit Provider Nurse Practitioner Family
DX: Z12.31 Encounter for screening mammogram for malignant neoplasm of breast (principal); R92.323 Mammographic fibroglandular density, bilateral breasts
CPT/HCPCS: 77063; 77067

== ENCOUNTER 2025-05-15 01:32 | Outpatient (CLI) | payer MEDICARE, MEDICAID, SELFPAY ==
[2025-05-15 15:04] LABS: Anion Gap 10.4 mmol/L (3-11); BUN 18 mg/dL (9-23); CO2 29.6 mmol/L (20.0-31.0); Calcium 9.8 mg/dL (8.3-10.6); Chloride 100 mmol/L (98-107); Cholesterol 191 mg/dL (<200); Glucose 299 mg/dL (74-106); HDL Cholesterol 50 mg/dL (>40); Potassium 4.2 mmol/L (3.5-5.1); Sodium 140 mmol/L (136-145); Vitamin B12 1083 pg/mL (211-911)
== END 2025-05-15 01:33 | disposition home or self-care (01) ==
LOC: LOS 01:32
PROVIDERS: PCP Nurse Practitioner Family; Visit Provider Nurse Practitioner Family
DX: E11.319 Type 2 diabetes mellitus with unspecified diabetic retinopathy without macular edema (principal); I10 Essential (primary) hypertension
CPT/HCPCS: 36415; 80048; 80061; 82607

== ENCOUNTER → 2025-05-23 00:02 | Outpatient (CLI) | payer MEDICARE, MEDICAID, SELFPAY ==
--- NOTE | 2025-05-23 06:45 | DI.MAMMO_ITS ---
Exam(s) MG MAMMO SCREENING 60 MIN DUR EXAM: MG MAMMO SCREENING 60 MIN DUR CLINICAL HISTORY: breast cancer screening,H/O LT BREAST CA,Z85.3,Z12.39 TECHNIQUE: Bilateral full field digital CC and MLO mammographic images were obtained with 3D tomosynthesis and utilizing computer aided detection (CAD). COMPARISON: Comparison is made with prior examinations. FINDINGS: Masses/Architectural Distortion: No suspicious masses or areas of architectural distortion are present. Patient is status post left lumpectomy. Microcalcifications: No suspicious pleomorphic-type are seen. Skin Thickening/Nipple Retraction: None. IMPRESSION: 1. No significant interval change with no specific features of malignancy noted. 2. Unless there is more urgent need, screening mammography is recommended, as per [employer] guidelines. 3. The findings were discussed with the patient on the date of the examination. BI-RADS Category 2 - Benign Findings Breast Density - Category B - There are scattered areas of fibroglandular density. Breast density Category C or D implies that the patient has dense breast tissue. Dense breast tissue can make it harder to find cancer on a mammogram. Dense breast tissue is also associated with an increased risk of breast cancer. This information about the result of the mammogram report was provided to the patient to raise their awareness. Use this report when you speak with the patient about their risks for breast cancer, which includes their family history. At that time, you may recommend additional screening tests (Ultrasound or MRI) as these tests may add significant information. A negative radiographic report should not delay biopsy if a dominant or clinically suspicious mass is present. Up to ten percent of cancers are not identified on mammography. A negative report may reinforce clinical impression. Adenosis and dense breasts may obscure an underlying neoplasm. False positive reports average 6 to 10%. Patient will receive a letter notifying them of these results.
== END ==
LOC: DI 00:02
PROVIDERS: PCP Nurse Practitioner Family; Visit Provider Nurse Practitioner Family
DX: Z12.31 Encounter for screening mammogram for malignant neoplasm of breast (principal); Z85.3 Personal history of malignant neoplasm of breast
CPT/HCPCS: 77063; 77067